=== PATIENT | male | born 1965 | race Caucasian/White ===

== ENCOUNTER 2023-02-11 14:06 | Outpatient (OUT) | payer BC, SELFPAY ==
--- NOTE | 2023-02-11 14:29 | CA_ITS ---
Patient Name: PARMJIT MINAYA MR#: [id number] : 1965 Exam Date: 02/11/2023 Ordering Doctor: DR Khanh Montemayro D.O. ECHOCARDIOGRAM REPORT PROCEDURE: CA ECHO DOPPLER COMPLETE INDICATIONS: Heart murmur, hypertension, diabetes COMPARISON: None. DESCRIPTION: COMPLETE ECHOCARDIOGRAM Real-time transthoracic echocardiography with 2D, M-mode, spectral and color flow Doppler performed. QUALITY: Technical quality was good. LEFT VENTRICLE: Normal chamber size. Proximal septal hypertrophy (sigmoid septum). LV EF: Global left ventricular systolic function is normal; visually estimated ejection fraction is 55 to 60%. No obvious wall motion abnormalities. DIASTOLIC: Normal diastolic function. ATRIAL SEPTUM: Inadequately seen. LEFT ATRIUM: Normal chamber size. RIGHT ATRIUM: Normal chamber size. RIGHT VENTRICLE: Normal chamber size. Normal right ventricular systolic function. TRICUSPID VALVE: Normal mobility and thickness. No stenosis with trivial regurgitation. Doppler studies reveal mildly (35-45) elevated right sided pressures. RVSP 35 mmHg MITRAL VALVE: Normal mobility and thickness. No evidence of mitral valve stenosis. There is no mitral annular calcification. Trivial mitral regurgitation. AORTIC VALVE: Normal trileaflet appearance. No visible sclerosis. Normal leaflet mobility. No evidence of aortic valve stenosis. No aortic regurgitation. AORTIC ROOT: Normal diameter and appearance. PULMONIC VALVE: Normal thickness and mobility. No stenosis. No regurgitation. PERICARDIUM: No evidence of pericardial effusion. IVC: Collapses with inspirations. CONCLUSION: 1. Global left ventricular systolic function is normal; visually estimated ejection fraction is 55 to 60% 2. The right ventricle is normal in size and systolic function 3. Normal diastolic function 4. No significant valvular abnormalities 5. Right ventricular systolic pressure is mildly elevated; RVSP 35 mmHg Adult Echocardiography Procedure Report Left Ventricle LVEDD (3.7 - 5.6 cm): 4.31 cm LVESD (2.2 - 4.0 cm): 3.38 cm LVIVS thickness (0.6 - 1.2 cm): 1.60 cm LVPW thickness (0.5 - 1.0 cm): 1.20 cm e': 0.11 m/s E - e': 6.76 LVOT Max Gradient: 2.64 mm[Hg] LVOT Area (cm2): 0.81 m/s Peak Velocity (LVOT): 0.81 m/s Mean Velocity (LVOT): 0.53 m/s LVOT Diameter 2.45 cm Left Atrium LA Volume Index (2D A2C): 27.03 ml/m2 Left Atrium Systolic Dimension: 4.26 cm Mitral Valve MV E to A Ratio: 0.93, 1.04 Mitral Valve A-Wave Peak Velocity: 0.76 m/s Mitral Valve E-Wave Peak Velocity: 0.75 m/s Right Ventricle Aorta AO Root Diam: 4.14 cm Ascending Ao Diam: 3.36 cm Aortic Valve AoV Area (Peak Prieto): 3.77 cm2, 3.77 cm2 AoV Area (VTI): 4.25 cm2, 4.25 cm2 Peak Velocity(Antegrade Flow): 1.01 m/s Peak Gradient(Antegrade Flow): 4.10 mm[Hg] Mean Velocity(Antegrade Flow): 0.76 m/s Mean Gradient(Antegrade Flow): 2.59 mm[Hg] Velocity Time Integral: 22.94 cm Tricuspid Valve Peak Velocity (Regurgitant Flow): 2.83 m/s, 2.45 m/s Pulmonic Valve Peak Velocity: 1.02 m/s Peak Gradient: 3.31 mm[Hg], 5.11 mm[Hg] Right Atrium Right Atrium Systolic Pressure: 45.15 ml, 45.15 ml Dictated by: Lorie Ahmadi M.D. on 02/15/2023 at 16:05 Approved by: Lorie Ahmadi M.D. on 02/15/2023 at 16:08
== END 2023-02-11 14:07 | disposition home or self-care (01) ==
LOC: CARD 14:06
PROVIDERS: PCP Internal Medicine; Visit Provider Internal Medicine
DX: R01.1 Cardiac murmur, unspecified (principal)
CPT/HCPCS: 93306

== ENCOUNTER 2023-08-31 07:04 | Outpatient (OUT) | payer BC, SELFPAY ==
--- OUTSIDE RECORDS SUMMARY | 2023-08-30 08:23 | XMS_ITS ---
Patient Summarization (C-CDA 2.1 CCD) Created on: August 30, 2023 PARMJIT MINAYA : 1965 Sex: Male Author Organization Sample organization Care Team Providers Care Force Dispatcher Name Role Phone Khanh Woodall Unavailable SIM, DR MYERS Primary Care Unavailable BALL, DR MYERS Consulting Unavailable BALL, DR MYERS Attending Unavailable BALL, DR MYERS Admitting Unavailable BALL, DR MYERS Primary Care Unavailable BALL, DR MYERS Attending Unavailable BALL, DR MYERS Admitting Unavailable BALL, DR MYERS Primary Care Unavailable NILL ., DR PARNELL Admitting Unavailable NILL ., DR PARNELL Consulting Unavailable NILL ., DR PARNELL Attending Unavailable JESUS MANUEL II, ROXIE Consulting Unavailable KOMA, ABBEY Consulting Unavailable BALL, DR MYERS Primary Care Unavailable BALL, DR MYERS Consulting Unavailable BALL, DR MYERS Attending Unavailable BALL, DR MYERS Admitting Unavailable BALL, DR MYERS Primary Care Unavailable BALL, DR MYERS Consulting Unavailable BALL, DR MYERS Attending Unavailable BALL, DR MYERS Admitting Unavailable NILL, Parmjit Boyle Attending Unavailable BALL, KHANH Referring Unavailable NILL, Parmjit Boyle Attending Unavailable BALL, KHANH Referring Unavailable NILL, Parmjit Boyle Attending Unavailable Allergies Allergy Classification Reported Allergen(s) Allergy Type Date of Onset Reaction(s) Facility (1 source) No Known Medication Allergies; Translations: [No Known Medication Allergies] Propensity to adverse reactions (disorder) [facility] Repository (3 sources) patient allergy list reviewed by nurse or physicia Propensity to adverse reactions 7 Comment:Done [facility] Other Encounters Encounter Date Encounter Type Care Provider Facility Start: 02-16-2023 End: 02-16-2023 ambulatory Khanh Woodall Other [facility] Other Start: 02-16-2023 Telephone encounter [facility] Start: 02-15-2023 End: 02-15-2023 ambulatory Khanh Woodall Other [facility] Other Start: 02-15-2023 Telephone encounter Khanh Woodall [facility] Start: 01-11-2023 End: 01-11-2023 ambulatory Khanh Woodall Other [facility] Other Start: 01-11-2023 Office outpatient vi sit 25 minutes Khanh Ball [facility] Start: 01-11-2023 Telephone encounter Khanh Woodall [facility] Start: 11-23-2022 End: 11-23-2022 ambulatory Khanh Woodall Other [facility] Other Start: 11-23-2022 Telephone encounter Khanh Woodall [facility] Start: 11-05-2022 End: 11-05-2022 ambulatory Khanh Woodall Other [facility] Other Start: 11-05-2022 Telephone encounter Khanh Woodall [facility] Start: 10-15-2022 End: 10-15-2022 ambulatory Khanh Woodall Other [facility] Other Start: 10-15-2022 Telephone encounter Khanh Woodall [facility] Start: 10-05-2022 End: 10-05-2022 ambulatory Khanh Woodall Other [facility] Other Start: 10-05-2022 Office outpatient vi sit 25 minutes Khanh Ball [facility] Start: 08-25-2022 End: 08-25-2022 ambulatory Khanh Woodall Other [facility] Other Start: 08-25-2022 Telephone encounter Khanh Woodall [facility] Start: 08-18-2022 End: 08-19-[address] KHANH WOODALL Facility: Start: 07-27-2022 End: 07-28-2022 ambulatory Parmjit REGALADO [facility] Start: 07-13-2022 ambulatory Parmjit REGALADO Facility : [facility] Start: 07-09-2022 End: 07-09-2022 ambulatory Khanh Woodall Other [facility] Other Start: 07-09-2022 Office outpatient vi sit 25 minutes Khanh Woodall [facility] Start: 07-09-2022 Telephone encounter Khanh Woodall [facility] Start: 07-08-2022 End: 07-09-[address] KHANH WOODALL Facility:[facility] Start: 07-02-2022 End: 07-02-2022 ambulatory Khanh Woodall Other [facility] Other Start: 07-02-2022 Office outpatient vi sit 15 minutes Khanh Woodall [facility] Start: 06-15-2022 Telephone encounter Khanh Woodall [facility] Start: 06-15-2022 End: 06-29-[address] KHANH WOODALL [facility] Other Start: 06-10-2022 End: 06-10-2022 ambulatory Khanh Woodall Other [facility] Other Start: 06-10-2022 Telephone encounter Khanh Woodall [facility] Start: 06-07-2022 End: 06-07-2022 ambulatory Khanh Woodall Other [facility] Other Start: 06-07-2022 Office outpatient vi sit 15 minutes Khanh Woodall [facility] Start: 06-07-2022 Telephone encounter Khanh Woodall [facility] Start: 05-17-2022 End: 05-17-2022 ambulatory Khanh Woodall Other [facility] Other Start: 05-17-2022 Telephone encounter Khanh Woodall [facility] Start: 04-16-2022 End: 04-16-2022 ambulatory Khanh Woodall Other [facility] Other Start: 04-16-2022 Telephone encounter Khanh Woodall [facility] Start: 03-28-2022 Encounter for genera l adult medical examination without abnormal findings DR KHANH WOODALL [facility] Start: 03-25-2022 Telephone encounter Khanh Woodall [facility] Start: 03-25-2022 End: 03-26-[address] KHANH WOODALL [facility] Other Start: 03-25-2022 End: 03-26-2022 Encounter for general adult medical examination without abnormal findings DR KHANH WOODALL Facility:[facility] Start: 03-24-2022 End: 03-24-2022 ambulatory Khanh Woodall Other [facility] Other Start: 03-24-2022 Encounter for genera l adult medical examination without abnormal findings Khanh Woodall [facility] Start: 03-24-2022 Patient encounter procedure Khanh Woodall [facility] Start: 03-24-2022 Periodic preventive med est patient 40-64yrs Khanh Woodall [facility] Start: 09-07-2021 End: 09-08-[address] KHANH WOODALL Facility:[facility] Start: 11-28-2019 Adult health examination Khanh Woodall Other [facility] Other Medical Equipment Procedure Code Equipment Code Equipment Original Text Equi pment Identifier Dates Pen Eugene 32G X 5 MM Immunizations Immunization Date Immunization Notes Care Provider Fa ana rosa 12-23-2020 influenza virus vaccine, split virus (incl. purified surface antigen) Khanh Woodall Other [facility] Other 11-28-2019 influenza virus vaccine, split virus (incl. purified surface antigen) Khanh Woodall Other [facility] Other 12-25-2013 tetanus and diphther ia toxoids, adsorbed, preservative free, for adult use (5 Lf of tetanus toxoid and 2 Lf of diphtheria toxoid) Khanh Woodall Other [facility] Other 01-18-2013 tetanus and diphther ia toxoids, adsorbed, preservative free, for adult use (5 Lf of tetanus toxoid and 2 Lf of diphtheria toxoid) Khanh Woodall Other [facility] Other Medications Current Medications Medication Drug Class(es) Dates Sig (Normalized) Sig (Original) acetaminophen 325 mg / HYDROcodone bitartrate 5 mg oral tablet (10 sources) Opioid Agonist Start: 06-10-2022 take 1 tablet by mouth every six hours as needed for pain HYDROcodone-Aceta minophen 5-325 MG 1 tablet Orally every 6 hrs as needed for pain, may cause sedation for 7 days May, Active amoxicillin 875 mg oral tablet (6 sources) Penicillin-class Antibacterial Start: 07-02-2022 take 1 tablet by mouth every twelve hours Amoxicillin 875 MG 1 tablet Orally Twice a day for 7 days Jun, Active Aspir-81 (20 sources) BD Insulin Syringe Ultrafine (20 sources) BD Insulin Syringe Ultrafine Active betamethasone 0.5 mg/ml / clotrimazole 10 mg/ml topical cream (6 sources) Azole Antifungal, Corticosteroid Clotrimazole-Beta methasone 1-0.05 % 1 application Externally Twice a day as needed for 30 days Active Clotrimazole-Betame thasone (17 sources) Clotrimazole-Bet a methasone Active dapagliflozin 10 mg oral tablet (9 sources) Sodium-Glucose Cotransporter 2 Inhibitor Start: 10-05-2022 take 1 tablet by mouth every twenty-four hours Farxiga 10 MG 1 tablet Orally Once a day Sep, Active Start: 10-05-2022 take 1 tablet by sheila th every twenty-four hours Farxiga 5 MG 1 tablet Orally Once a day for 30 days Sep, Active etodolac 500 mg oral tablet (10 sources) Nonsteroidal Anti-inflammatory Drug Start: 06-07-2022 take 1 tablet by mouth every twelve hours Etodolac 500 MG 1 tablet with food Orally Twice a day for 30 days May, Active FreeStyle Danilo 14 Day Sensor (20 sources) FreeStyle Danilo 14 Day Sensor Use to test home BS Transcutaneous 6x daily for 30 days Active 3 ml insulin glargine 100 unt/ml pen injector (5 sources) Insulin Analog Start: 01-11-2023 Lantus SoloStar 100 UNIT/ML 25 units Subcutaneous daily for 30 days Dec, Active insulin isophane / insulin, regular, human (20 sources) Insulin 3 ml insulin lispro 100 unt/ml pen injector (18 sources) Insulin Analog HumaLOG KwikPen 100 UNIT/ML 30 units Subcutaneous before each meal, tid for 30 days Active inject 10 [IU] by prakash bcutaneous injection three times daily at mealtime HumaLOG KwikPen 100 UNIT/ML 10 units Subcutaneous before each meal, tid for 30 days Active HumaLOG KwikPen 100 UNIT/ML 20 units Subcutaneous before lunch for 30 days Active inject 5 [IU] by sub cutaneous injection before lunch HumaLOG KwikPen 100 UNIT/ML 5 units Subcutaneous before lunch for 30 days Active lisinopril 5 mg oral tablet (12 sources) Angiotensin Converting Enzyme Inhibitor take 1 tablet by mouth once daily Lisinopril 5 MG take 1 tablet by mouth once daily for 90 Active Lisinopril Activ e losartan potassium 25 mg oral tablet (13 sources) Angiotensin 2 Receptor Davy Start: 07-09-2022 take 1 tablet by mouth every twenty-four hours Losartan Potassium 25 MG 1 tablet Orally Once a day Jun, Active metFORMIN hydrochloride 1000 mg oral tablet (9 sources) Biguanide Start: 10-05-2022 take 1 tablet by mouth twice daily metFORMIN HCl 1000 MG 1 tablet with a meal Orally Twice daily Sep, Active Start: 10-05-2022 take 1 tablet by sheila th every twenty-four hours metFORMIN HCl 500 MG 1 tablet with a meal Orally Once a day for 30 days Sep, Active Metformin & Diet Manage Prod (14 sources) Metformin & Diet Manage Prod Active Pen Eugene (15 sources) Pen Eugene Acti ve Pravastatin (20 sources) HMG-CoA Reductase Inhibitor take 1 tablet by mouth once daily in the evening Pravastatin Sodium 20 MG take 1 tablet by mouth every evening Active Pravastatin Acti ve sildenafil (20 sources) Phosphodiesterase 5 Inhibitor Sildenafil Citrate Active terbinafine 250 mg oral tablet (9 sources) Allylamine Antifungal Start: 10-06-19 take 1 tablet by mouth every twenty-four hours Terbinafine HCl 250 MG 1 tablet Orally Once a day for 14 days Sep, Active tiZANidine 4 mg oral tablet (10 sources) Central alpha-2 Adrenergic Agonist Start: 06-08-19 take 0.5-1 tablets by mouth once at bedtime tiZANidine HCl 4 MG 1/2 to 1 tablet Orally q HS for 14 days May, Active Completed/Discontinued Medications Medication Drug Class(es) Dates Sig (Normalized) Sig (Original) 3 ml insulin detemir 100 unt/ml pen injector (13 sources) Insulin Analog Start: 07-09-2022 inject 10 [IU] by subcutaneous injection once at bedtime Levemir FlexPen 100 UNIT/ML 10 units Subcutaneous q HS Jun, Not-Taking Payers Date Payer Category Payer Unknown [id number] 2.16.84 [id number] 1965 Unknown [id number] 2.16.84 [id number] 1965 Unknown [id number] 2.16.84 [id number] 1965 Unknown [id number] 2.16.84 [id number] 1965 Unknown [id number] 2.16.84 [id number] 1965 Unknown [id number] 2.16.8 [id number] 1965 Unknown [id number] 2.16.8 [id number] 1965 Unknown [id number] 2.16.8 [id number] 1958 [facility] [id number] Problems Active Problems Problem Classification Problem Date Documented Date Episodic/Chronic Acute bronchitis (1 source) Acute bronchitis due to other specified organisms Episodic Deficiency and other anemia (5 sources) Anemia, unspecified; Translations: [ANEMIA UNSPECIFIED] Onset: 07-08-2022 Episodic Deficiency and other anemia (13 sources) Iron deficiency anemia; Translations: [Iron deficiency anemia, unspecified] Episodic Deficiency and other anemia (2 sources) Iron deficiency anemia, unspecified Episodic Diabetes mellitus with complications (20 sources) Hyperglycemia due to type 2 diabetes mellitus; Translations: [Type 2 diabetes mellitus with hyperglycemia] Onset: 09-07-2021 Chronic Diabetes mellitus without complication (3 sources) Type 2 diabetes mellitus without complication; Translations: [Diabetes mellitus without mention of complication, type II or unspecified type, not stated as uncontrolled] Chronic Disorders of lipid metabolism (20 sources) Hyperlipidemia; Translations: [Hyperlipidemia, unspecified] Chronic Esophageal disorders (9 sources) Esophageal reflux finding; Translations: [Esophageal reflux] Onset: 03-16-2013 Chronic Essential hypertension (20 sources) Essential hypertension; Translations: [Essential (primary) hypertension] Chronic Heart valve disorders (2 sources) Cardiac murmur, unspecified Episodic Hyperplasia of prostate (3 sources) Benign prostatic hypertrophy without outflow obstruction; Translations: [Hypertrophy (benign) of prostate without urinary obstruction and other lower urinary tract symptoms [LUTS]] Onset: 03-08-2017 Chronic Immunizations and screening for infectious disease (3 sources) Vaccination given; Translations: [Encounter for immunization] Episodic Mycoses (20 sources) Pityriasis versicolor; Translations: [Pityriasis versicolor] Episodic Osteoarthritis (3 sources) Localized, primary osteoarthritis of the hand; Translations: [Primary osteoarthritis, left hand] Onset: 10-14-2017 Chronic Other aftercare (13 sources) Long-term current 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; Translations: [[facility] (current) 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] Episodic Other aftercare (5 sources) [facility] (current) 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; Translations: [[facility] CURRENT USE OF INSULIN] Onset: 09-09-2021 Episodic Other connective tissue disease (3 sources) Lateral epicondylitis; Translations: [Lateral epicondylitis, left elbow] Episodic Other inflammatory condition of skin (1 source) Erythema intertrigo Episodic Other injuries and conditions due to external causes (3 sources) Old healed fracture of bone ; Translations: [Personal history of (healed) traumatic fracture] Episodic Other lower respiratory disease (1 source) Other forms of dyspnea Episodic Other male genital disorders (20 sources) Impotence of organic origin; Translations: [Erectile dysfunction due to arterial insufficiency] Chronic Other non-traumatic joint disorders (1 source) Pain in right hip; Translations: [PAIN IN RIGHT HIP] Onset: 06-17-2022 Episodic Other nutritional; endocrine; and metabolic disorders (9 sources) Severe obesity; Translations: [Morbid (severe) obesity due to excess calories] Chronic Other nutritional; endocrine; and metabolic disorders (12 sources) Body mass index 30+ - obesity; Translations: [Body mass index (BMI) 36.0-36.9, adult] Onset: 04-14-2016 Chronic Other nutritional; endocrine; and metabolic disorders (3 sources) Morbid (severe) obesity due to excess calories Chronic Other nutritional; endocrine; and metabolic disorders (3 sources) Body mass index (BMI) 36.0-36.9, adult Chronic Other nutritional; endocrine; and metabolic disorders (3 sources) Simple obesity ; Translations: [Other obesity due to excess calories] Chronic Other nutritional; endocrine; and metabolic disorders (3 sources) Obesity; Translations: [Obesity, unspecified] Chronic Other screening for suspected conditions (not mental disorders or infectious disease) (20 sources) Patient encounter status; Translations: [Encounter for screening for malignant neoplasm of colon] Onset: 03-28-2022 Episodic Residual codes; unclassified (3 sources) Requires influenza virus vaccination; Translations: [Need for prophylactic vaccination and inoculation, Influenza] Episodic Residual codes; unclassified (3 sources) Family history of diabetes mellitus; Translations: [Family history of diabetes mellitus] Episodic Residual codes; unclassified (2 sources) Family history of ischemic heart disease and other diseases of the circulatory system Episodic Spondylosis; intervertebral disc disorders; other back problems (3 sources) Lumbosacral spondylosis without myelopathy; Translations: [Spondylosis without myelopathy or radiculopathy, lumbar region] Onset: 04-13-2018 Chronic Spondylosis; intervertebral disc disorders; other back problems (20 sources) Acute back pain with sciatica; Translations: [Lumbago with sciatica, right side] Onset: 06-15-2022 Episodic Substance-related disorders (3 sources) Tobacco user; Translations: [Nicotine dependence, cigarettes, in remission] Chronic Unclassified (3 sources) Exposure to acute respiratory syndrome coronavirus 2; Translations: [Contact with and (suspected) exposure to COVID-19] Viral infection (3 sources) Viral disease; Translations: [Viral infection, unspecified] Episodic Viral infection (3 sources) Disease caused by 2019-nCoV; Translations: [COVID-19] Past or Other Problems Problem Classification Problem Date Documented Da te Episodic/Chronic Esophageal disorders (20 sources) Esophageal disorders; Translations: [Gastro-esophageal reflux disease with esophagitis, without bleeding] Influenza (3 sources) Upper respiratory tract infection due to Influenza; Translations: [Influenza due to unidentified influenza virus with other respiratory manifestations] Onset: 03-18-2016 Episodic Other connective tissue disease (3 sources) Pain in limb; Translations: [Pain in left finger(s)] Onset: 10-14-2017 Episodic Other nutritional; endocrine; and metabolic disorders (3 sources) Overweight; Translations: [Overweight] Onset: 04-14-2016 Episodic Other nutritional; endocrine; and metabolic disorders (3 sources) Body mass index 25-29 - overweight; Translations: [Body mass index 29.0-29.9, adult] Onset: 04-14-2016 Episodic Other upper respiratory infections (3 sources) Acute sinusitis; Translations: [Acute sinusitis, unspecified] Onset: 03-16-2013 Episodic Screening and history of mental health and substance abuse codes (3 sources) History of tobacco use; Translations: [Personal history of tobacco use, presenting hazards to health] Onset: 06-27-2017 Episodic Unclassified (3 sources) Other closed skull fracture without mention of intracranial injury, brief (less than one hour) loss of consciousness; Translations: [Other closed skull fracture without mention of intracranial injury, brief (less than one hour) loss of consciousness] Procedures Date Procedure Procedure Detail Performing Clinician Start: 03-25-[address] GODOY IN [facility] Comment on above: Performed By: #### P [facility] #### [facility] [address] [place] [address] Dr. Russ Hsu Start: 11-01-2018 Screening for malign ant neoplasm of colon Khanh Woodall Other Start: 02-21-2015 General examination of patient Khanh Woodall Other Results Test Name Value Interpretation Reference Range Facility Outside Colonoscopyon 2022 Outside Colonoscopy [id number] .00CD:127 Normal [facility] Reminderson 08-19-2022 Reminders - From: Jess Perez LPN To: N - Clinical; Sent: 08/19/2022 12:08:18 EDT Show up: 07/18/2032 07:00:00 EDT Subject: colonoscopy recall Due Date/Time: 08/18/2032 07:00:00 EDT Reminder/Recall Patient due for screening colonoscopy 08/18/2032. [facility] Consent for Procedure/Surger yon 07-29-2022 Consent for Procedure/Surgery [id number] .[id number]:127 [facility] Facesheeton 07-29-2022 Facesheet [id number] .00CD:127 [facility] Pre-Certification Formon Pre-Certification Form [id number]# 1.00CD:127 [facility] Ambulatory Visit Summaryon 0 07-27-2022 Ambulatory Visit Summary SVEN MINAYA :1965 Visit Date:07/27/2022 Ambulatory Visit Instructions Your Diagnosis Iron deficiency anemia Anemia due to gastrointestinal blood loss Your Care Team Attending Physician - Parmjit REGALADO MD Primary Care Physician - KHANH WOODALL DO Referring Physician - KHANH WOODALL DO This Is Your Medications List Contact prescribing physician if questions or concerns aspirin (aspirin 81 mg Oral EC Tab) insulin isophane-insulin regular (HumuLIN 70/30 KwikPen) insulin lispro (Humalog KwikPen) losartan (losartan 25 mg Tab) metformin (metformin 1000 mg Tab) pravastatin (pravastatin 20 mg Tab) sildenafil Procedures Performed Extraction of wisdom tooth. Discharge Vitals Heart Rate (Peripheral) 72 Respiratory Rate 16 Blood Pressure 136/94 Height 177.8 cm Height 70 in Weight 110.4 kg Weight 242.88 lb BMI 34.92 Medications What How Much When Instructions Unchanged aspirin (aspirin 81 mg Oral EC Tab) 1 Tablets By Mouth Every day Contact prescribing physician if questions or concerns Unchanged insulin isophane-insulin regular (HumuLIN 70/ 30 KwikPen) as directed Contact prescribing physician if questions or concerns Unchanged insulin lispro (Humalog KwikPen) as directed Contact prescribing physician if questions or concerns Unchanged losartan (losartan 25 mg Tab) Oral Contact prescribing physician if questions or concerns Unchanged metformin (metformin 1000 mg Tab) 1 Tablets By Mouth 2 times a day Contact prescribing physician if questions or concerns Unchanged pravastatin (pravastatin 20 mg Tab) 1 Tablets By Mouth Every day Contact prescribing physician if questions or concerns Unchanged sildenafil Contact prescribing physician if questions or concerns Allergies No Known Allergies No Known Medication Allergies Problems Ongoing - Any problem that you are currently receiving treatment for. Anemia due to gastrointestinal blood loss BMI 34.0-34.9,adult Diabetes Erectile dysfunction Essential hypertension GERD (gastroesophageal reflux disease) Hyperlipidemia Iron deficiency anemia Normal [facility] Physician Referralon 023 Physician Referral [id number]. 00CD:127 Normal [facility] CBC AUTO DIFFon 07-08-2022 BASO # 0.1 103/ul Normal 0.0-0.1 [facility] Comment on above: Performed By: #### C BC #### [facility] [address] [place] [address] Dr. Russ Hsu Basophils/100 WBC (Bld) 0.9 % Normal 0.2-2.0 [facility] Comment on above: Performed By: #### C BC #### [facility] [address] [place] [address] Dr. Russ Hsu EO # 0.4 103/ul Normal 0.0-0.7 [facility] Comment on above: Performed By: #### C BC #### [facility] [address] [place] [address] Dr. Russ Hsu Eosinophils/100 WBC (Bld) 4.1 % Normal 0.9-7.0 [facility] Comment on above: Performed By: #### C BC #### [facility] [address] [place] [address] Dr. Russ Hsu Erythrocyte distribution width (RBC) [Ratio] 13.6 % Normal 11.0-15.0 [facility] Comment on above: Performed By: #### C BC #### [facility] [address] [place] [address] Dr. Russ Hsu Hematocrit (Bld) [Volume fraction] 40.0 % Critically low 42.0-54.0 [facility] Comment on above: Performed By: #### C BC #### [facility] [address] [place] [address] Dr. Russ Hsu Hemoglobin (Bld) [Mass/Vol] 13.2 g/dL Critically low 14.0-18.0 [facility] Comment on above: Performed By: #### C BC #### [facility] [address] [place] [address] Dr. Russ Hsu IG # 0.08 10e3/ul Critically high 0.00-0.03 [facility] Comment on above: Performed By: #### C BC #### [facility] [address] [address] [address] Russ Hsu IG % 0.8 % Critically high 0.0-0.5 [facility] Comment on above: Performed By: #### C BC #### [facility] [address] [place] [address] Dr. Russ Hsu LYMPH # 2.0 103/ul Normal 1.2-3.8 [facility] Comment on above: Performed By: #### C BC #### [facility] [address] [place] [address] Dr. Russ Hsu Lymphocytes/100 WBC (Bld) 20.7 % Normal 20.5-60.0 [facility] Comment on above: Performed By: #### C BC #### [facility] [address] [place] [address] Dr. Russ Hsu MANUAL DIFF REQ NO Normal [facility] Comment on above: Performed By: #### C BC #### [facility] [address] [place] [address] Dr. Russ Hsu MCH (RBC) [Entitic mass] 28.6 pg Normal 25.9-34.0 [facility] Comment on above: Performed By: #### C BC #### [facility] [address] [place] [address] Dr. Russ Hsu MCHC (RBC) [Mass/Vol] 33.0 g/dL Normal 29.9-35.2 [facility] Comment on above: Performed By: #### C BC #### [facility] [address] [place] [address] Dr. Russ Hsu MCV (RBC) [Entitic vol] 86.8 fL Normal 80.0-94.0 [facility] Comment on above: Performed By: #### C BC #### [facility] [address] [place] [address] Dr. Russ Hsu MONO # 0.9 103/ul Critically high 0.3-0.8 [facility] Comment on above: Performed By: #### C BC #### [facility] [address] [place] [address] Dr. Russ Hsu Monocytes/100 WBC (Bld) 9.2 % Normal 1.7-12.0 [facility] Comment on above: Performed By: #### C BC #### [facility] [address] [place] [address] Dr. Russ Hsu NEUT # 6.1 103/ul Normal 1.4-6.5 [facility] Comment on above: Performed By: #### C BC #### [facility] [address] [place] [address] Dr. Russ Hsu Neutrophils/100 WBC (Bld) 64.3 % Normal 43.0-75.0 [facility] Comment on above: Performed By: #### C BC #### [facility] [address] [place] [address] Dr. Russ Hsu Platelet mean volume (Bld) [Entitic vol] 9.2 fL Critically low 9.5-13.5 [facility] Comment on above: Performed By: #### C BC #### [facility] [address] [place] [address] Dr. Russ Hsu PLT 366 103/ul Normal 150-450 [facility] Comment on above: Performed By: #### C BC #### [facility] [address] [place], [place] [id number] Dr. Russ Hsu RBC 4.61 106/ul Critically low 4.70-6.10 [facility] Comment on above: Performed By: #### C BC #### [facility] [address] [place] [address] Dr. Russ Hsu WBC 9.5 103/ul Normal 4.0-11.0 [facility] Comment on above: Performed By: #### C BC #### [facility] [address] [address] [address] Russ Hsu FERRITINon 07-08-2022 Ferritin [Mass/Vol] 53.0 ng/mL Normal 26.0-388.0 [facility] Comment on above: Performed By: #### F ERR, B12FOL, FETIBC #### [facility] [address] [address] [address] Russ Hsu GLYCOHEMOGLOBIN A1Con 2022 ADA RECOMMENDATION SEE BELOW Normal [facility] Comment on above: Result Comment: ADA RECOMMENDED LIMIT 4.0 - 6.0 ADA THERAPEUTIC TARGET < 7.0 ACTION SUGGESTED > 7.0 Performed By: #### A 1C #### [facility] [address] [address] [address] Russ Hsu Glucose [Mass/Vol] 203 mg/dL Normal [facility] Comment on above: Performed By: #### A 1C #### [facility] [address] [address] [address] Russ Hsu HbA1c (Bld) [Mass fraction] 8.7 % Critically high 4.5-6.2 [facility] Comment on above: Performed By: #### A 1C #### [facility] [address] [address] [address] Russ Hsu IRON AND TIBCon 07-08-2022 % SATURATION 16.9 % Normal [facility] Comment on above: Performed By: #### F ERR, B12FOL, FETIBC ####[facility] [id number] [address]Dr. Russ Hsu Iron [Mass/Vol] 57.0 ug/dL Critically low 65.0-175.0 [facility] Comment on above: Performed By: #### F ERR, B12FOL, FETIBC ####[facility] [id number] [id number]. Russ Hsu TIBC DIRECT 337.0 ug/dL Normal 250.0-450.0 [facility] Comment on above: Performed By: #### F ERR, B12FOL, FETIBC ####[facility] [id number] [address]Dr. Russ Hsu VIT B12 AND FOLATEon 023 Cobalamin (Vitamin B12) [Mass/Vol] 353.0 pg/mL Normal 193.0-986.0 [facility] Comment on above: Performed By: #### F ERR, B12FOL, FETIBC ####[facility] [address] [address]Dr. Russ Hsu FOLATE 15.80 ng/mL Normal 8.60-58.90 [facility] Comment on above: Performed By: #### F ERR, B12FOL, FETIBC ####[facility] [address] [address]Dr. Russ Hsu CBC AUTO DIFFon 03-25-2022 BASO # 0.1 103/ul Normal 0.0-0.1 [facility] Comment on above: Performed By: #### C BC #### [facility] [address] [place] [address] Dr. Russ Hsu Basophils/100 WBC (Bld) 0.8 % Normal 0.2-2.0 [facility] Comment on above: Performed By: #### C BC #### [facility] [address] [place] [address] Dr. Russ Hsu EO # 0.5 103/ul Normal 0.0-0.7 [facility] Comment on above: Performed By: #### C BC #### [facility] [address] [place] [address] Dr. Russ Hsu Eosinophils/100 WBC (Bld) 5.9 % Normal 0.9-7.0 [facility] Comment on above: Performed By: #### C BC #### [facility] [address] [place] [address] Dr. Russ Hsu Erythrocyte distribution width (RBC) [Ratio] 13.2 % Normal 11.0-15.0 [facility] Comment on above: Performed By: #### C BC #### [facility] [address] [place] [address] Dr. Russ Hsu Hematocrit (Bld) [Volume fraction] 41.1 % Critically low 42.0-54.0 [facility] Comment on above: Performed By: #### C BC #### [facility] [address] [place] [address] Dr. Russ Hsu Hemoglobin (Bld) [Mass/Vol] 13.8 g/dL Critically low 14.0-18.0 [facility] Comment on above: Performed By: #### C BC #### [facility] [address] [place] [address] Dr. Russ Hsu IG # 0.08 10e3/ul Critically high 0.00-0.03 [facility] Comment on above: Performed By: #### C BC #### [facility] [address] [place] [address] Dr. Russ Hsu IG % 0.9 % Critically high 0.0-0.5 [facility] Comment on above: Performed By: #### C BC #### [facility] [address] [place] [address] Dr. Russ Hsu LYMPH # 2.3 103/ul Normal 1.2-3.8 [facility] Comment on above: Performed By: #### C BC #### [facility] [address] [place] [address] Dr. Russ Hsu Lymphocytes/100 WBC (Bld) 24.7 % Normal 20.5-60.0 [facility] Comment on above: Performed By: #### C BC #### [facility] [address] [place] [address] Dr. Russ Hsu MANUAL DIFF REQ NO Normal [facility] Comment on above: Performed By: #### C BC #### [facility] [address] [place] [address] Dr. Russ Hsu MCH (RBC) [Entitic mass] 28.5 pg Normal 25.9-34.0 [facility] Comment on above: Performed By: #### C BC #### [facility] [address] [place] [address] Dr. Russ Hsu MCHC (RBC) [Mass/Vol] 33.6 g/dL Normal 29.9-35.2 [facility] Comment on above: Performed By: #### C BC #### [facility] [address] [place] [address] Dr. Russ Hsu MCV (RBC) [Entitic vol] 84.7 fL Normal 80.0-94.0 [facility] Comment on above: Performed By: #### C BC #### [facility] [address] [place] [address] Dr. Russ Hsu MONO # 0.9 103/ul Critically high 0.3-0.8 [facility] Comment on above: Performed By: #### C BC #### [facility] [address] [place] [address] Dr. Russ Hsu Monocytes/100 WBC (Bld) 9.3 % Normal 1.7-12.0 [facility] Comment on above: Performed By: #### C BC #### [facility] [address] [place] [address] Dr. Russ Hsu NEUT # 5.4 103/ul Normal 1.4-6.5 [facility] Comment on above: Performed By: #### C BC #### [facility] [address] [place] [address] Dr. Russ Hsu Neutrophils/100 WBC (Bld) 58.4 % Normal 43.0-75.0 [facility] Comment on above: Performed By: #### C BC #### [facility] [address] [place] [address] Dr. Russ Hsu Platelet mean volume (Bld) [Entitic vol] 9.2 fL Critically low 9.5-13.5 [facility] Comment on above: Performed By: #### C BC #### [facility] [address] [place] [address] Dr. Russ Hsu PLT 327 103/ul Normal 150-450 [facility] Comment on above: Performed By: #### C BC #### [facility] [address] [place] [address] Dr. Russ Hsu RBC 4.85 106/ul Normal 4.70-6.10 [facility] Comment on above: Performed By: #### C BC #### [facility] [address] [address] [address] Russ Hsu WBC 9.2 103/ul Normal 4.0-11.0 [facility] Comment on above: Performed By: #### C BC #### [facility] [address] [address] [address] Russ Hsu GLYCOHEMOGLOBIN A1Con 2022 ADA RECOMMENDATION SEE BELOW Normal [facility] Comment on above: Result Comment: ADA RECOMMENDED LIMIT 4.0 - 6.0 ADA THERAPEUTIC TARGET < 7.0 ACTION SUGGESTED > 7.0 Performed By: #### A 1C ####[facility] [id number] [id number]. Russ Hsu Glucose [Mass/Vol] 232 mg/dL Normal [facility] Comment on above: Performed By: #### A 1C ####[facility] [address] [id number]. Russ Hsu HbA1c (Bld) [Mass fraction] 9.7 % Critically high 4.5-6.2 [facility] Comment on above: Performed By: #### A 1C ####[facility] [address] [id number]. Russ Hsu LIPID PROFILEon 03-25-2022 CHOL-HDL RATIO NORM SEE BELOW Normal [facility] Comment on above: Result Comment: 3.3 - 4.4 LOW RISK 4.4 - 7.1 AVERAGE RISK 7.1 - 11.0 MODERATE RISK >11.0 HIGH RISK Performed By: #### C MP, LIPID #### [facility] [address] [address] [address] Russ Hsu Cholesterol [Mass/Vol] 145 mg/dL Normal <=200 [facility] Comment on above: Performed By: #### C MP, LIPID #### [facility] [address] [address] [address] Russ Hsu Cholesterol in HDL [Mass/Vol] 47 mg/dL Normal 40-60 [facility] Comment on above: Performed By: #### C MP, LIPID #### [facility] [address] [address] [address] Russ Hsu Cholesterol in LDL [Mass/Vol] 78.2 mg/dL Normal [facility] Comment on above: Performed By: #### C MP, LIPID #### [facility] [address] [address] [address] Russ Hsu Cholesterol.total/Cho lesterol in HDL [Mass ratio] 3.1 {ratio} Normal [facility] Comment on above: Performed By: #### C MP, LIPID #### [facility] [address] [address] [address] Russ Hsu HDL NORMAL > or = 60 mg/dl - LO W CARDIOVASCULAR RISK <40 mg/dl - HIGH CARDIOVASCULAR RISK Normal [facility] Comment on above: Performed By: #### C MP, LIPID #### [facility] [address] [place] [address] Dr. Russ Hsu LDL CALC NORMAL SEE BELOW Normal [facility] Comment on above: Result Comment: <100 mg/dl OPTIMAL 100 - 129 mg/dl NEAR OR ABOVE OPTIMAL 130 - 159 mg/dl BORDERLINE HIGH 160 - 189 mg/dl HIGH >190 mg/dl VERY HIGH Performed By: #### C MP, LIPID #### [facility] [address] [place] [address] Dr. Russ Hsu Triglyceride [Mass/Vol] 99 mg/dL Normal <=150 [facility] Comment on above: Performed By: #### C MP, LIPID #### [facility] [address] [place] [address] Dr. Russ Hsu VLDL CALC 19.8 mg/dL Normal [facility] Comment on above: Performed By: #### C MP, LIPID #### [facility] [address] [place] [address] Dr. Russ Hsu MICROALBUMIN, RAND URon 01-0 mALB 1.5 mg/L Normal <=30.0 [facility] Comment on above: Performed By: #### M ALBR #### [facility] [address] [place] [address] Dr. Russ Hsu PROF 14(COMP METB)on 023 Albumin [Mass/Vol] 3.5 g/dL Normal 3.4-5.0 [facility] Comment on above: Performed By: #### C MP, LIPID #### [facility] [address] [place] [address] Dr. Russ Hsu Albumin/Globulin [Mass ratio] 0.9 {ratio} Normal [facility] Comment on above: Performed By: #### C MP, LIPID #### [facility] [address] [place] [address] Dr. Russ Hsu ALP [Catalytic activity/Vol] 113 U/L Normal 46-116 [facility] Comment on above: Performed By: #### C MP, LIPID #### [facility] [address] [place] [address] Dr. Russ Hsu ALT [Catalytic activity/Vol] 23 U/L Normal 16-63 [facility] Comment on above: Performed By: #### C MP, LIPID #### [facility] [address] [place] [address] Dr. Russ Hsu Anion gap [Moles/Vol] 11.4 mmol/L Normal [facility] Comment on above: Performed By: #### C MP, LIPID #### [facility] [address] [place] [address] Dr. Russ Hsu AST [Catalytic activity/Vol] 17 U/L Normal 15-37 [facility] Comment on above: Performed By: #### C MP, LIPID #### [facility] [address] [place] [address] Dr. Russ Hsu Bilirubin [Mass/Vol] 0.3 mg/dL Normal 0.2-1.0 [facility] Comment on above: Performed By: #### C MP, LIPID #### [facility] [address] [place] [address] Dr. Russ Hsu Calcium [Mass/Vol] 9.3 mg/dL Normal 8.5-10.1 [facility] Comment on above: Performed By: #### C MP, LIPID #### [facility] [address] [address] [address] Russ Hsu Chloride [Moles/Vol] 100 mmol/L Normal 98-107 [facility] Comment on above: Performed By: #### C MP, LIPID #### [facility] [address] [address] [address] Russ Hsu CO2 [Moles/Vol] 27.5 mmol/L Normal 21.0-32.0 [facility] Comment on above: Performed By: #### C MP, LIPID #### [facility] [address] [address] [address] Russ Hsu Creatinine [Mass/Vol] 1.00 mg/dL Normal 0.70-1.30 [facility] Comment on above: Performed By: #### C MP, LIPID #### [facility] [address] [place] [address] Dr. Russ Hsu EGFR-AF TUVALUAN >60 Normal >=60 [facility] Comment on above: Performed By: #### C MP, LIPID #### [facility] [address] [place] [address] Dr. Russ Hsu EGFR-NON AF TUVALUAN >60 Normal >=60 [facility] Comment on above: Performed By: #### C MP, LIPID #### [facility] [address] [place] [address] Dr. Russ Hsu Globulin (S) [Mass/Vol] 3.8 g/dL Normal [facility] Comment on above: Performed By: #### C MP, LIPID #### [facility] [address] [place] [address] Dr. Russ Hsu Glucose [Mass/Vol] 181 mg/dL Critically high 74-106 [facility] Comment on above: Performed By: #### C MP, LIPID #### [facility] [address] [place] [address] Dr. Russ Hsu Potassium [Moles/Vol] 3.9 mmol/L Normal 3.5-5.1 [facility] Comment on above: Performed By: #### C MP, LIPID #### [facility] [address] [address] [address] Russ Hsu Protein [Mass/Vol] 7.3 g/dL Normal 6.4-8.2 [facility] Comment on above: Performed By: #### C MP, LIPID #### [facility] [address] [address] [address] Russ Hsu Sodium [Moles/Vol] 135 mmol/L Critically low 136-145 [facility] Comment on above: Performed By: #### C MP, LIPID #### [facility] [address] [address] [address] Russ Hsu Urea nitrogen [Mass/Vol] 13.0 mg/dL Normal 7.0-18.0 [facility] Comment on above: Performed By: #### C MP, LIPID #### [facility] [address] [place] [address] Dr. Russ Hsu Urea nitrogen/Creatinine [Mass ratio] 13.0 mg/mg Normal [facility] Comment on above: Performed By: #### C MP, LIPID #### [facility] [address] [address] [address] Russ Hsu GLYCOHEMOGLOBIN A1Con 2021 ADA RECOMMENDATION SEE BELOW Normal [facility] Comment on above: Result Comment: ADA RECOMMENDED LIMIT 4.0 - 6.0 ADA THERAPEUTIC TARGET < 7.0 ACTION SUGGESTED > 7.0 Performed By: #### A 1C #### [facility] [address] [place] [address] Dr. Russ Hsu Glucose [Mass/Vol] 214 mg/dL Normal [facility] Comment on above: Performed By: #### A 1C #### [facility] [address] [place] [address] Dr. Russ Hsu HbA1c (Bld) [Mass fraction] 9.1 % Critically high 4.5-6.2 [facility] Comment on above: Performed By: #### A 1C #### [facility] [address] [place] [address] Dr. Russ Hsu Social History Date Type Detail Facility Sex Assigned At [facility] Other Vital Signs Date Time Vital Sign Value Performing Clinician Facility 01-11-2023 15:30-0400 Body height 177.8 cm Khanh Ball Other [facility] 01-11-2023 15:30-0400 Body mass index (BMI) [Ratio] 35.95 kg/m2 Khan[facility] Ball Other [facility] 01-11-2023 15:30-0400 Body weight 113.67 kg Khanh Ball Other [facility] 01-11-2023 15:30-0400 Diastolic blood pressure 91 mm[Hg] Khanh Ball Other [facility] 01-11-2023 15:30-0400 Respiratory rate 12 /min Khanh Ball Other [facility] 01-11-2023 15:30-0400 Systolic blood pressure 146 mm[Hg] Khanh Ball Other [facility] 10-05-2022 15:30-0400 Body height 177.8 cm Khanh Ball Other [facility] 10-05-2022 15:30-0400 Body mass index (BMI) [Ratio] 36.1 kg/m2 Khanh Ball Other [facility] 10-05-2022 15:30-0400 Body weight 114.13 kg Khanh Ball Other [facility] 10-05-2022 15:30-0400 Diastolic blood pressure 96 mm[Hg] Khanh Ball Other [facility] 10-05-2022 15:30-0400 Respiratory rate 16 /min Khanh Ball Other [facility] 10-05-2022 15:30-0400 Systolic blood pressure 172 mm[Hg] Khanh Ball Other [facility] 07-09-2022 09:30-0400 Body height 177.8 cm Khanh Ball Other [facility] 07-09-2022 09:30-0400 Body mass index (BMI) [Ratio] 35.09 kg/m2 Khanh Ball Other [facility] 07-09-2022 09:30-0400 Body weight 110.95 kg Khanh Ball Other [facility] 07-09-2022 09:30-0400 Diastolic blood pressure 90 mm[Hg] Khanh Ball Other [facility] 07-09-2022 09:30-0400 Respiratory rate 20 /min Khanh Ball Other [facility] 07-09-2022 09:30-0400 Systolic blood pressure 152 mm[Hg] Khanh Ball Other [facility] 06-07-2022 16:45-0400 Body height 177.8 cm Khanh Ball Other [facility] 06-07-2022 16:45-0400 Body mass index (BMI) [Ratio] 34.43 kg/m2 Khanh Ball Other [facility] Other 06-07-2022 16:45-0400 Body weight 108.86 kg Khanh Ball Other [facility] 06-07-2022 16:45-0400 Diastolic blood pressure 76 mm[Hg] Khanh Ball Other [facility] Other 06-07-2022 16:45-0400 Respiratory rate 16 /min Khanh Ball Other [facility] Other 06-07-2022 16:45-0400 Systolic blood pressure 122 mm[Hg] Khanh Ball Other [facility] Other 03-24-2022 09:30-0500 Body height 177.8 cm Khanh Ball Other [facility] Other 03-24-2022 09:30-0500 Body mass index (BMI) [Ratio] 33.86 kg/m2 Khanh Ball Other [facility] Other 03-24-2022 09:30-0500 Body weight 107.05 kg Khanh Ball Other [facility] Other 03-24-2022 09:30-0500 Diastolic blood pressure 78 mm[Hg] Khanh Ball Other [facility] Other 03-24-2022 09:30-0500 Respiratory rate 16 /min Khanh Ball Other [facility] Other 03-24-2022 09:30-0500 Systolic blood pressure 122 mm[Hg] Khanh Ball Other [facility] Other Clinical Notes 03-24-2022 to 02-15-2023 Note Date & Type Note Facility 02-15-2023 Evaluation note Encounter Date Diagnosis Assessment Notes Jan, Primary hypertension (ICD-10 - I10) Jan, TATE (dyspnea on exertion) (ICD-10 - R06.09) [facility] Other [id number] Evaluation note* Encounter Date Diagnosis Assessment Notes Treatment Notes Treatment Clinical Notes Dec, Type 2 diabetes mellitus with diabetic polyneuropathy (ICD-10 - E11.42) Inspect feet daily for cuts and calluses.Recommend diabetic shoes and inserts to prevent callus formation.Fall precautions. Dec, Type 2 diabetes mellitus with hyperglycemia (ICD-10 - E11.65) This patient is following a comprehensive diabetic treatment plan. They are checking their feet daily for calluses and nonhealing ulcers. They are being seen for yearly dilated eye examinations. Goals: SBP less than 130, LDL less than 100, FBS less than 140, A1C less than 7%. They are checking their BS daily, will which are reviewed at the office visit. Continue regular routine monitoring of A1C,] Microalbumin, Dilated eye exam and Foot exam Initiated basal insulin Continue meal time ISS Continue Metformin and Farxiga Dec, Primary hypertension (ICD-10 - I10) This patient is instructed to consume a healthy, low-fat, low-salt diet. They are also encouraged to continue exercise to achieve/maintain a normal BMI. Dec, Mixed hyperlipidemia (ICD-10 - E78.2) Instructed on diet and exercise with continued statin therapy.Discussed the beneficial effects of lowering cholesterol in reducing the risk for cerebrovascular and cardiovascular disease. Dec, Morbid (severe) obesity due to excess calories (ICD-10 - E66.01) This patient has been instructed on a low-fat, high-fiber diet. They are instructed to reduce calories, portion sizes and snacks. It is recommended that they exercise for 30 minutes, 3-5 times weekly. 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 SBP< 135 LDL<100 A1C<7% Diet, exercise and weight loss Dec, Heart murmur (ICD-10 - R01.1) Dec, Other This patient is following a comprehensive diabetic treatment plan. They are checking their feet daily for calluses and nonhealing ulcers. They are being seen for yearly dilated eye examinations. Goals: SBP less than 130, LDL less than 100, FBS less than 140, A1C less than 7%. They are checking their BS daily, will which are reviewed at the office visit. Continue regular routine monitoring of A1C,] Microalbumin, Dilated eye exam and Foot exam [facility] Other 09-05-2023 Evaluation note* Encounter Date Diagnosis Assessment Notes Treatment Notes Treatment Clinical Notes Nov, Controlled type 2 diabetes mellitus with hyperglycemia (ICD-10 - E11.65) [facility] Other 08-18-2023 Evaluation note* Encounter Date Diagnosis Assessment Notes Treatment Notes Treatment Clinical Notes Oct, Controlled type 2 diabetes mellitus with hyperglycemia (ICD-10 - E11.65) [facility] Other 07-18-2023 Evaluation note* Encounter Date Diagnosis Assessment Notes Treatment Notes Treatment Clinical Notes Sep, Type 2 diabetes mellitus with diabetic polyneuropathy (ICD-10 - E11.42) Inspect feet daily for cuts and calluses.Recommend diabetic shoes and inserts to prevent callus formation.Fall precautions. Sep, Controlled type 2 diabetes mellitus with hyperglycemia (ICD-10 - E11.65) This patient is following a comprehensive diabetic treatment plan. They are checking their feet daily for calluses and nonhealing ulcers. They are being seen for yearly dilated eye examinations. Goals: SBP less than 130, LDL less than 100, FBS less than 140, AC and A1C less than 7%. They are checking their BS daily, will which are reviewed at the office visit. Continue regular routine monitoring of A1C,] Microalbumin, Dilated eye exam and Foot exam Sep, Primary hypertension (ICD-10 - I10) This patient is instructed to consume a healthy, low-fat, low-salt diet. They are also encouraged to continue exercise to achieve/maintain a normal BMI. Sep, Morbid (severe) obesity due to excess calories (ICD-10 - E66.01) This patient has been instructed on a low-fat, high-fiber diet. They are instructed to reduce calories, portion sizes and snacks. It is recommended that they exercise for 30 minutes, 3-5 times weekly. Sep, Body mass index [BMI] 36.0-36.9, adult (ICD-10 - Z68.36) Sep, Mixed hyperlipidemia (ICD-10 - E78.2) Instructed on diet and exercise with continued statin therapy.Discussed the beneficial effects of lowering cholesterol in reducing the risk for cerebrovascular and cardiovascular disease. Sep, Intertriginous dermatitis associated with moisture (ICD-10 - L30.4) Keep area clean and dry. Stop Lotrisone Trial of Lamisil Sep, Tinea versicolor (ICD-10 - B36.0) Selson lotion to shoulders and chest. [facility] Other 05-31-2023 NoteOPERATIVE NOTE OPERATION DATE: 08/18/2022 PREOPERATIVE DIAGNOSIS: Iron deficiency anemia. POSTOPERATIVE DIAGNOSIS: Small sliding type hiatal hernia, normal colonoscopy. PROCEDURE: EGD and colonoscopy to cecum. SURGEON: Parmjit Regalado M.D. ANESTHESIA: Monitored anesthesia care. ESTIMATED BLOOD LOSS: Zero. INDICATIONS AND CONSENT: Patient is a 56-year-old male found to have mild anemia. Indications, risks, benefits, alternatives of proceeding with EGD and colonoscopy were explained extensively to the patient, including the risks of bleeding, aspiration, esophageal/gastric/duodenal/colonic perforation or anesthetic complications. All of his questions were answered. Informed consent was obtained. PROCEDURE: Patient brought to the operating room, placed in the left lateral decubitus position. Monitored anesthesia care was provided. Bite block was placed in the patient's mouth. Scope was entered into the oropharynx. Under direct visualization, it was advanced into the esophagus, past the cricopharyngeus, down to the stomach. The stomach was insufflated with air. The pylorus was traversed down to the descending portion of the duodenum. There was no evidence of duodenitis or ulceration. There was no scarring within the pyloric channel. Scope was pulled back into the stomach and retroflexed. There was noted to be a small, sliding type hiatal hernia. No other gastric mucosal abnormalities. The GE junction was noted at approximately 41 cm. There was no distal esophagitis or Mendenhall's changes. Remainder of the esophagus was unremarkable. The scope was then withdrawn. Patient was then positioned for colonoscopy. Rectal exam was performed, which showed no masses or blood. The scope was then inserted into the anal canal. Under direct visualization, it was advanced. It was advanced to the cecum where cecal markings were clearly identified. Upon withdrawal of the scope, mucosal surfaces were carefully examined. There were no mass lesions or polyps. No inflammatory changes or ulcerations. No significant diverticulosis. The scope was retroflexed in the anal canal. There was no significant hemorrhoidal disease. The scope was then withdrawn. The patient tolerated procedure well, was sent to recovery room in good condition. Follow up colonoscopy for screening should be in 10 years. CC: Khanh Woodall D.O.[facility] [id number] NoteChief Complaint consultation for iron deficiency anemia HPI Staff 56 year old male presents on consultation from Dr. Woodall for iron deficiency anemia. Labs completed 07/08 with HGB 13.2, HCT 40, iron 57 and normal Ferritin, TIBC, B12 and folate. Denies dizziness, lightheadedness, fatigue or SOB. Denies abdominal or rectal pain. No rectal bleeding or change in bowelhabits. Denies nausea or vomiting. No unexplained weight loss. Never had colonoscopy in the past. No known family history of colon cancer. History of Present Illness 56 yo male with h/o htn, DMII, GERD, hyperlipidemia, referred for iron deficiency anemia; denies change in bms or blood in stools, no melena or hematochezia; no abd complaints; no previous EGD/colonoscopy, no abd operations; on baby asa daily, takes ibuprofen prn, no SBE prophylaxis; no fmhx of GI m alignancy or IBD; no tobacco use. Review of Systems PHQ Score Initial Depression Screen Score: 0 ROS - Provider Constitutional: no fever, no sweats, no weight loss. Eyes: no glasses, no blurred vision, no visual loss. ENMT: no dentures, no hoarseness, no swallowing difficulties, no hearing loss, no ear infection(s),no nose bleeds. Cardiovascular: normal blood pressure, no chest pain, regular heartbeat, no heart murmur. Respiratory: no shortness of breath, no cough, no asthma, no wheezing. Gastrointestinal: no nausea, no vomiting, no diarrhea, no constipation, no blood in stool, no change in bowel habits, no abdominal pain, no hepatitis. Genitourinary: no kidney stones, no urine infection, no dysuria. Musculoskeletal: no pain, no weakness. Skin: no changing moles, no rash, no skin lumps. Neurologic: no seizures, no epilepsy, no headache. Psychiatric: no emotional or psychiatric problem. Heme/Lymph: no bleeding problems, no anemia, no blood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
--- OUTSIDE RECORDS SUMMARY | 2023-08-31 07:07 | XMS_ITS ---
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 Name Role Phone Khanh Woodall Unavailable SIM, [...] Medication Allergies] Propensity to adverse reactions (disorder) [facility] Repository (3 sources) patient allergy list reviewed by nurse or physicia Propensity to adverse reactions 7 Comment:Done [employer] Other Encounters Encounter Date Encounter Type Care Provider Facility Start: 02-16-2023 End: 02-16-2023 ambulatory Khanh Woodall Other [employer] Other Start: 02-16-2023 Telephone encounter [facility] Start: 02-15-2023 End: 02-15-2023 ambulatory Khanh Woodall Other [employer] Other Start: 02-15-2023 Telephone encounter Khanh Woodall [facility] Start: 01-11-2023 End: 01-11-2023 ambulatory Khanh Woodall Other [employer] Other Start: 01-11-2023 Office outpatient vi sit 25 minutes Khanh Ball [facility] Start: 01-11-2023 Telephone encounter Khanh Woodall [facility] Start: 11-23-2022 End: 11-23-2022 ambulatory Khanh Woodall Other [employer] Other Start: 11-23-2022 Telephone encounter Khanh Woodall [facility] Start: 11-05-2022 End: 11-05-2022 ambulatory Khanh Woodall Other [employer] Other Start: 11-05-2022 Telephone encounter Khanh Woodall [facility] Start: 10-15-2022 End: 10-15-2022 ambulatory Khanh Woodall Other [employer] Other Start: 10-15-2022 Telephone encounter Khanh Woodall [facility] Start: 10-05-2022 End: 10-05-2022 ambulatory Khanh Woodall Other [employer] Other Start: 10-05-2022 Office outpatient vi sit 25 minutes Khanh Ball [facility] Start: 08-25-2022 End: 08-25-2022 ambulatory Khanh Woodall Other [employer] Other Start: 08-25-2022 Telephone encounter Khanh Woodall [facility] Start: 08-18-2022 End: 08-19-[address] KHANH WOODALL Facility: Start: 07-27-2022 End: 07-28-2022 ambulatory [facility]it [facility] Start: 07-13-2022 ambulatory Parmjit REGALADO Facility : [facility] Start: 07-09-2022 End: 07-09-2022 ambulatory Khanh Woodall Other [employer] Other Start: 07-09-2022 Office outpatient vi sit 25 minutes Khanh Woodall [facility] Start: 07-09-2022 Telephone encounter Khanh Woodall [facility] Start: 07-08-2022 End: 07-09-[address] KHANH WOODALL Facility:[facility] Start: 07-02-2022 End: 07-02-2022 ambulatory Khanh Woodall Other [employer] Other Start: 07-02-2022 Office outpatient vi sit 15 minutes Khanh Woodall [facility] Start: 06-15-2022 Telephone encounter Khanh Woodall [facility] Start: 06-15-2022 End: 06-29-[address] KHANH WOODALL [facility] [employer] Other Start: 06-10-2022 End: 06-10-2022 ambulatory Khanh Woodall Other [employer] Other Start: 06-10-2022 Telephone encounter Khanh Woodall [facility] Start: 06-07-2022 End: 06-07-2022 ambulatory Khanh Woodall Other [employer] Other Start: 06-07-2022 Office outpatient vi sit 15 minutes Khanh Woodall [facility] Start: 06-07-2022 Telephone encounter Khanh Woodall [facility] Start: 05-17-2022 End: 05-17-2022 ambulatory Khanh Woodall Other [employer] Other Start: 05-17-2022 Telephone encounter Khanh Woodall [facility] Start: 04-16-2022 End: 04-16-2022 ambulatory Khanh Woodall Other [employer] Other Start: 04-16-2022 Telephone encounter Khanh Woodall [facility] Start: 03-28-2022 Encounter for genera l adult medical examination without abnormal findings DR KHANH WOODALL [facility] Start: 03-25-2022 Telephone encounter Khanh Woodall [facility] Start: 03-25-2022 End: 03-26-[address] KHANH WOODALL [facility] [employer] Other Start: 03-25-2022 End: 03-26-2022 Encounter for general adult medical examination without abnormal findings DR KHANH WOODALL Facility:[facility] Start: 03-24-2022 End: 03-24-2022 ambulatory Khanh Woodall Other [employer] Other Start: 03-24-2022 Encounter for genera l adult medical examination without abnormal findings Khanh Woodall [facility] Start: 03-24-2022 Patient encounter procedure Khanh Woodall [facility] Start: 03-24-2022 Periodic preventive med est patient 40-64yrs Khanh Woodall [facility] Start: 09-07-2021 End: 09-08-[address] KHANH WOODALL Facility:[facility] Start: 11-28-2019 Adult health examination Khahn Woodall Other [employer] Other Medical Equipment Procedure Code Equipment Code Equipment Original Text Equi pment Identifier Dates Pen [place] 32G X 5 MM Immunizations Immunization Date Immunization Notes Care Provider Fa ana rosa 12-23-2020 influenza virus vaccine, split virus (incl. purified surface antigen) Khanh Woodall Other [employer] Other 11-28-2019 influenza virus vaccine, split virus (incl. purified surface antigen) Khanh Woodall Other [employer] Other 12-25-2013 tetanus and diphther ia toxoids, adsorbed, preservative free, for adult use (5 Lf of tetanus toxoid and 2 Lf of diphtheria toxoid) Khanh Woodall Other [employer] Other 01-18-2013 tetanus and diphther ia toxoids, adsorbed, preservative free, for adult use (5 Lf of tetanus toxoid and 2 Lf of diphtheria toxoid) Khanh Woodall Other [employer] Other Medications Current Medications Medication Drug Class(es) [...] Metformin & Diet Manage Prod Active Pen [place] (15 sources) Pen [place] Acti ve Pravastatin (20 sources) HMG-CoA Reductase [...] Not-Taking Payers Date Payer Category Payer Unknown [id number] 2.16.84 [id number] 1965 Unknown [id number] 2.16.84 [id number] 1965 Unknown [id number] 2.16.84 [id number] 1965 Unknown [id number] 2.16.84 [id number] 1965 Unknown [id number] 2.16.84 [id number] 1965 Unknown [id number] 2.16.8 [id number] 1965 Unknown [id number] 2.16.8 [id number] 1965 Unknown [id number] 2.16.8 [id number] [facility] [id number] Problems Active Problems Problem Classification Problem Date [...] sources) Long-term current 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; Translations: [custodial (current) 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] Episodic Other aftercare (5 sources) custodial (current) 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; Translations: [SKILLED NURSING CURRENT USE OF INSULIN] Onset: 09-09-2021 Episodic [...] Comment on above: Performed By: #### P [facility] #### [facility] [address] [place] [address] Dr. Russ Hsu Start: 11-01-2018 Screening for malign ant neoplasm of colon Khanh Woodall Other Start: 02-21-2015 General examination of patient Khanh Woodall Other Results Test Name Value Interpretation Reference Range Facility Outside Colonoscopyon 2022 Outside Colonoscopy [id number]#1 .00CD:127 Normal [facility] Reminderson 08-19-2022 Reminders - From: Jess Perez LPN To: N - Clinical; Sent: 08/19/2022 12:08:18 EDT Show up: 07/18/2032 07:00:00 EDT Subject: colonoscopy recall Due Date/Time: 08/18/2032 07:00:00 EDT Reminder/Recall Patient due for screening colonoscopy 08/18/2032. [facility] Consent for Procedure/Surger yon 07-29-2022 Consent for Procedure/Surgery [id number]#1 .00CD:127 [facility] Facesheeton 07-29-2022 Facesheet [id number] .00CD:127 [facility] Pre-Certification Formon Pre-Certification Form [id number] 1.00CD:127 [facility] Ambulatory Visit Summaryon 0 07-27-2022 Ambulatory Visit [...] reflux disease) Hyperlipidemia Iron deficiency anemia Normal [facility] Physician Referralon 023 Physician Referral [id number]#1. 00CD:127 Normal [facility] CBC AUTO DIFFon 07-08-2022 BASO # 0.1 103/ul Normal 0.0-0.1 [facility] Comment on above: Performed By: #### C BC #### [facility] [address] [place] [address] Dr. Russ Hsu Basophils/100 WBC (Bld) 0.9 % Normal 0.2-2.0 [facility] Comment on above: Performed By: #### C BC #### [facility] [address] [place] [address] Dr. Russ Hsu EO # 0.4 103/ul Normal 0.0-0.7 [facility] Comment on above: Performed By: #### C BC #### [facility] [address] [place] [address] Dr. Russ Hsu Eosinophils/100 WBC (Bld) 4.1 % Normal 0.9-7.0 [facility] Comment on above: Performed By: #### C BC #### [facility] [address] [place] [address] Dr. Russ Hsu Erythrocyte distribution width (RBC) [Ratio] 13.6 % Normal 11.0-15.0 [facility] Comment on above: Performed By: #### C BC #### [facility] [address] [place] [address] Dr. Russ Hsu Hematocrit (Bld) [Volume fraction] 40.0 % Critically low 42.0-54.0 [facility] Comment on above: Performed By: #### C BC #### [facility] [address] [place] [address] Dr. Russ Hsu Hemoglobin (Bld) [Mass/Vol] 13.2 g/dL Critically low 14.0-18.0 [facility] Comment on above: Performed By: #### C BC #### [facility] [address] [place] [address] Dr. Russ Hsu IG # 0.08 10e3/ul Critically high 0.00-0.03 [facility] Comment on above: Performed By: #### C BC #### [facility] [address] [address] [address] Russ Hsu IG % 0.8 % Critically high 0.0-0.5 [facility] Comment on above: Performed By: #### C BC #### [facility] [address] [place] [address] Dr. Russ Hsu LYMPH # 2.0 103/ul Normal 1.2-3.8 [facility] Comment on above: Performed By: #### C BC #### [facility] [address] [place] [address] Dr. Russ Hsu Lymphocytes/100 WBC (Bld) 20.7 % Normal 20.5-60.0 [facility] Comment on above: Performed By: #### C BC #### [facility] [address] [place] [address] Dr. Russ Hsu MANUAL DIFF REQ NO Normal [facility] Comment on above: Performed By: #### C BC #### [facility] [address] [place] [address] Dr. Russ Hsu MCH (RBC) [Entitic mass] 28.6 pg Normal 25.9-34.0 [facility] Comment on above: Performed By: #### C BC #### [facility] [address] [place] [address] Dr. Russ Hsu MCHC (RBC) [Mass/Vol] 33.0 g/dL Normal 29.9-35.2 [facility] Comment on above: Performed By: #### C BC #### [facility] [address] [place] [address] Dr. Russ Hsu MCV (RBC) [Entitic vol] 86.8 fL Normal 80.0-94.0 [facility] Comment on above: Performed By: #### C BC #### [facility] [address] [place] [address] Dr. Russ Hsu MONO # 0.9 103/ul Critically high 0.3-0.8 [facility] Comment on above: Performed By: #### C BC #### [facility] [address] [place] [address] Dr. Russ Hsu Monocytes/100 WBC (Bld) 9.2 % Normal 1.7-12.0 [facility] Comment on above: Performed By: #### C BC #### [facility] [address] [place] [address] Dr. Russ Hsu NEUT # 6.1 103/ul Normal 1.4-6.5 [facility] Comment on above: Performed By: #### C BC #### [facility] [address] [place] [address] Dr. Russ Hsu Neutrophils/100 WBC (Bld) 64.3 % Normal 43.0-75.0 [facility] Comment on above: Performed By: #### C BC #### [facility] [address] [place] [address] Dr. Russ Hsu Platelet mean volume (Bld) [Entitic vol] 9.2 fL Critically low 9.5-13.5 [facility] Comment on above: Performed By: #### C BC #### [facility] [address] [place] [address] Dr. Russ Hsu PLT 366 103/ul Normal 150-450 [facility] Comment on above: Performed By: #### C BC #### [facility] [address] [place], [place] [id number] Dr. Russ Hsu RBC 4.61 106/ul Critically low 4.70-6.10 [facility] Comment on above: Performed By: #### C BC #### [facility] [address] [place] [address] Dr. Russ Hsu WBC 9.5 103/ul Normal 4.0-11.0 [facility] Comment on above: Performed By: #### C BC #### [facility] [address] [address] [address] Russ Hsu FERRITINon 07-08-2022 Ferritin [Mass/Vol] 53.0 ng/mL Normal 26.0-388.0 [facility] Comment on above: Performed By: #### F ERR, B12FOL, FETIBC #### [facility] [address] [address] [address] Russ Hsu GLYCOHEMOGLOBIN A1Con 2022 ADA RECOMMENDATION SEE BELOW Normal [facility] Comment on above: Result Comment: ADA RECOMMENDED LIMIT 4.0 - 6.0 ADA THERAPEUTIC TARGET < 7.0 ACTION SUGGESTED > 7.0 Performed By: #### A 1C #### [facility] [address] [address] [address] Russ Hsu Glucose [Mass/Vol] 203 mg/dL Normal [facility] Comment on above: Performed By: #### A 1C #### [facility] [address] [address] [address] Russ Hsu HbA1c (Bld) [Mass fraction] 8.7 % Critically high 4.5-6.2 [facility] Comment on above: Performed By: #### A 1C #### [facility] [address] [address] [address] Russ Hsu IRON AND TIBCon 07-08-2022 % SATURATION 16.9 % Normal [facility] Comment on above: Performed By: #### F ERR, B12FOL, FETIBC ####[facility] [address] [address]Dr. Russ Hsu Iron [Mass/Vol] 57.0 ug/dL Critically low 65.0-175.0 [facility] Comment on above: Performed By: #### F ERR, B12FOL, FETIBC ####[facility] [address] [id number]. Russ Hsu TIBC DIRECT 337.0 ug/dL Normal 250.0-450.0 [facility] Comment on above: Performed By: #### F ERR, B12FOL, FETIBC ####[facility] [address] [address]Dr. Russ Hsu VIT B12 AND FOLATEon 023 Cobalamin (Vitamin B12) [Mass/Vol] 353.0 pg/mL Normal 193.0-986.0 [facility] Comment on above: Performed By: #### F ERR, B12FOL, FETIBC ####[facility] [address] [address]Dr. Russ Hsu FOLATE 15.80 ng/mL Normal 8.60-58.90 [facility] Comment on above: Performed By: #### F ERR, B12FOL, FETIBC ####[facility] [address] [address]Dr. Russ Hsu CBC AUTO DIFFon 03-25-2022 BASO # 0.1 103/ul Normal 0.0-0.1 [facility] Comment on above: Performed By: #### C BC #### [facility] [address] [place] [address] Dr. Russ Hsu Basophils/100 WBC (Bld) 0.8 % Normal 0.2-2.0 [facility] Comment on above: Performed By: #### C BC #### [facility] [address] [place] [address] Dr. Russ Hsu EO # 0.5 103/ul Normal 0.0-0.7 [facility] Comment on above: Performed By: #### C BC #### [facility] [address] [place] [address] Dr. Russ Hsu Eosinophils/100 WBC (Bld) 5.9 % Normal 0.9-7.0 [facility] Comment on above: Performed By: #### C BC #### [facility] [address] [place] [address] Dr. Russ Hsu Erythrocyte distribution width (RBC) [Ratio] 13.2 % Normal 11.0-15.0 [facility] Comment on above: Performed By: #### C BC #### [facility] [address] [place] [address] Dr. Russ Hsu Hematocrit (Bld) [Volume fraction] 41.1 % Critically low 42.0-54.0 [facility] Comment on above: Performed By: #### C BC #### [facility] [address] [place] [address] Dr. Russ Hsu Hemoglobin (Bld) [Mass/Vol] 13.8 g/dL Critically low 14.0-18.0 [facility] Comment on above: Performed By: #### C BC #### [facility] [address] [place] [address] Dr. Russ Hsu IG # 0.08 10e3/ul Critically high 0.00-0.03 [facility] Comment on above: Performed By: #### C BC #### [facility] [address] [place] [address] Dr. Russ Hsu IG % 0.9 % Critically high 0.0-0.5 [facility] Comment on above: Performed By: #### C BC #### [facility] [address] [place] [address] Dr. Russ Hsu LYMPH # 2.3 103/ul Normal 1.2-3.8 [facility] Comment on above: Performed By: #### C BC #### [facility] [address] [place] [address] Dr. Russ Hsu Lymphocytes/100 WBC (Bld) 24.7 % Normal 20.5-60.0 [facility] Comment on above: Performed By: #### C BC #### [facility] [address] [place] [address] Dr. Russ Hsu MANUAL DIFF REQ NO Normal [facility] Comment on above: Performed By: #### C BC #### [facility] [address] [place] [address] Dr. Russ Hsu MCH (RBC) [Entitic mass] 28.5 pg Normal 25.9-34.0 [facility] Comment on above: Performed By: #### C BC #### [facility] [address] [place] [address] Dr. Russ Hsu MCHC (RBC) [Mass/Vol] 33.6 g/dL Normal 29.9-35.2 [facility] Comment on above: Performed By: #### C BC #### [facility] [address] [place] [address] Dr. Russ Hsu MCV (RBC) [Entitic vol] 84.7 fL Normal 80.0-94.0 [facility] Comment on above: Performed By: #### C BC #### [facility] [address] [place] [address] Dr. Russ Hsu MONO # 0.9 103/ul Critically high 0.3-0.8 [facility] Comment on above: Performed By: #### C BC #### [facility] [address] [place] [address] Dr. Russ Hsu Monocytes/100 WBC (Bld) 9.3 % Normal 1.7-12.0 [facility] Comment on above: Performed By: #### C BC #### [facility] [address] [place] [address] Dr. Russ Hsu NEUT # 5.4 103/ul Normal 1.4-6.5 [facility] Comment on above: Performed By: #### C BC #### [facility] [address] [place] [address] Dr. Russ Hsu Neutrophils/100 WBC (Bld) 58.4 % Normal 43.0-75.0 [facility] Comment on above: Performed By: #### C BC #### [facility] [address] [place] [address] Dr. Russ Hsu Platelet mean volume (Bld) [Entitic vol] 9.2 fL Critically low 9.5-13.5 [facility] Comment on above: Performed By: #### C BC #### [facility] [address] [place] [address] Dr. Russ Hsu PLT 327 103/ul Normal 150-450 [facility] Comment on above: Performed By: #### C BC #### [facility] [address] [place] [address] Dr. Russ Hsu RBC 4.85 106/ul Normal 4.70-6.10 [facility] Comment on above: Performed By: #### C BC #### [facility] [address] [address] [address] Russ Hsu WBC 9.2 103/ul Normal 4.0-11.0 [facility] Comment on above: Performed By: #### C BC #### [facility] [address] [address] [address] Russ Hsu GLYCOHEMOGLOBIN A1Con 2022 ADA RECOMMENDATION SEE BELOW Normal [facility] Comment on above: Result Comment: ADA RECOMMENDED LIMIT 4.0 - 6.0 ADA THERAPEUTIC TARGET < 7.0 ACTION SUGGESTED > 7.0 Performed By: #### A 1C ####[facility] [address] [id number]. Russ Hsu Glucose [Mass/Vol] 232 mg/dL Normal [facility] Comment on above: Performed By: #### A 1C ####[facility] [address] [id number]. Russ Hsu HbA1c (Bld) [Mass fraction] 9.7 % Critically high 4.5-6.2 [facility] Comment on above: Performed By: #### A 1C ####[facility] [address] [id number]. Russ Hsu LIPID PROFILEon 03-25-2022 CHOL-HDL RATIO NORM SEE BELOW Normal [facility] Comment on above: Result Comment: 3.3 - 4.4 LOW RISK 4.4 - 7.1 AVERAGE RISK 7.1 - 11.0 MODERATE RISK >11.0 HIGH RISK Performed By: #### C MP, LIPID #### [facility] [address] [address] [address] Russ Hsu Cholesterol [Mass/Vol] 145 mg/dL Normal <=200 [facility] Comment on above: Performed By: #### C MP, LIPID #### [facility] [address] [address] [address] Russ Hsu Cholesterol in HDL [Mass/Vol] 47 mg/dL Normal 40-60 [facility] Comment on above: Performed By: #### C MP, LIPID #### [facility] [address] [address] [address] Russ Hsu Cholesterol in LDL [Mass/Vol] 78.2 mg/dL Normal [facility] Comment on above: Performed By: #### C MP, LIPID #### [facility] [address] [address] [address] Russ Hsu Cholesterol.total/Cho lesterol in HDL [Mass ratio] 3.1 {ratio} Normal [facility] Comment on above: Performed By: #### C MP, LIPID #### [facility] [address] [address] [address] Russ Hsu HDL NORMAL > or = 60 mg/dl - LO W CARDIOVASCULAR RISK <40 mg/dl - HIGH CARDIOVASCULAR RISK Normal [facility] Comment on above: Performed By: #### C MP, LIPID #### [facility] [address] [place] [address] Dr. Russ Hsu LDL CALC NORMAL SEE BELOW Normal [facility] Comment on above: Result Comment: <100 mg/dl OPTIMAL 100 - 129 mg/dl NEAR OR ABOVE OPTIMAL 130 - 159 mg/dl BORDERLINE HIGH 160 - 189 mg/dl HIGH >190 mg/dl VERY HIGH Performed By: #### C MP, LIPID #### [facility] [address] [place] [address] Dr. Russ Hsu Triglyceride [Mass/Vol] 99 mg/dL Normal <=150 [facility] Comment on above: Performed By: #### C MP, LIPID #### [facility] [address] [place] [address] Dr. Russ Hsu VLDL CALC 19.8 mg/dL Normal [facility] Comment on above: Performed By: #### C MP, LIPID #### [facility] [address] [place] [address] Dr. Russ Hsu MICROALBUMIN, RAND URon 01-0 mALB 1.5 mg/L Normal <=30.0 [facility] Comment on above: Performed By: #### M ALBR #### [facility] [address] [place] [address] Dr. Russ Hsu PROF 14(COMP METB)on 023 Albumin [Mass/Vol] 3.5 g/dL Normal 3.4-5.0 [facility] Comment on above: Performed By: #### C MP, LIPID #### [facility] [address] [place] [address] Dr. Russ Hsu Albumin/Globulin [Mass ratio] 0.9 {ratio} Normal [facility] Comment on above: Performed By: #### C MP, LIPID #### [facility] [address] [place] [address] Dr. Russ Hsu ALP [Catalytic activity/Vol] 113 U/L Normal 46-116 [facility] Comment on above: Performed By: #### C MP, LIPID #### [facility] [address] [place] [address] Dr. Russ Hsu ALT [Catalytic activity/Vol] 23 U/L Normal 16-63 [facility] Comment on above: Performed By: #### C MP, LIPID #### [facility] [address] [place] [address] Dr. Russ Hsu Anion gap [Moles/Vol] 11.4 mmol/L Normal [facility] Comment on above: Performed By: #### C MP, LIPID #### [facility] [address] [place] [address] Dr. Russ Hsu AST [Catalytic activity/Vol] 17 U/L Normal 15-37 [facility] Comment on above: Performed By: #### C MP, LIPID #### [facility] [address] [place] [address] Dr. Russ Hsu Bilirubin [Mass/Vol] 0.3 mg/dL Normal 0.2-1.0 [facility] Comment on above: Performed By: #### C MP, LIPID #### [facility] [address] [place] [address] Dr. Russ Hsu Calcium [Mass/Vol] 9.3 mg/dL Normal 8.5-10.1 [facility] Comment on above: Performed By: #### C MP, LIPID #### [facility] [address] [address] [address] Russ Hsu Chloride [Moles/Vol] 100 mmol/L Normal 98-107 [facility] Comment on above: Performed By: #### C MP, LIPID #### [facility] [address] [address] [address] Russ Hsu CO2 [Moles/Vol] 27.5 mmol/L Normal 21.0-32.0 [facility] Comment on above: Performed By: #### C MP, LIPID #### [facility] [address] [address] [address] Russ Hsu Creatinine [Mass/Vol] 1.00 mg/dL Normal 0.70-1.30 [facility] Comment on above: Performed By: #### C MP, LIPID #### [facility] [address] [place] [address] Dr. Russ Hsu EGFR-AF NIGERIEN >60 Normal >=60 [facility] Comment on above: Performed By: #### C MP, LIPID #### [facility] [address] [place] [address] Dr. Russ Hsu EGFR-NON AF NIGERIEN >60 Normal >=60 [facility] Comment on above: Performed By: #### C MP, LIPID #### [facility] [address] [place] [address] Dr. Russ Hsu Globulin (S) [Mass/Vol] 3.8 g/dL Normal [facility] Comment on above: Performed By: #### C MP, LIPID #### [facility] [address] [place] [address] Dr. Russ Hsu Glucose [Mass/Vol] 181 mg/dL Critically high 74-106 [facility] Comment on above: Performed By: #### C MP, LIPID #### [facility] [address] [place] [address] Dr. Russ Hsu Potassium [Moles/Vol] 3.9 mmol/L Normal 3.5-5.1 [facility] Comment on above: Performed By: #### C MP, LIPID #### [facility] [address] [address] [address] Russ Hsu Protein [Mass/Vol] 7.3 g/dL Normal 6.4-8.2 [facility] Comment on above: Performed By: #### C MP, LIPID #### [facility] [address] [address] [address] Russ Hsu Sodium [Moles/Vol] 135 mmol/L Critically low 136-145 [facility] Comment on above: Performed By: #### C MP, LIPID #### [facility] [address] [address] [address] Russ Hsu Urea nitrogen [Mass/Vol] 13.0 mg/dL Normal 7.0-18.0 [facility] Comment on above: Performed By: #### C MP, LIPID #### [facility] [address] [place] [address] Dr. Russ Hsu Urea nitrogen/Creatinine [Mass ratio] 13.0 mg/mg Normal [facility] Comment on above: Performed By: #### C MP, LIPID #### [facility] [address] [address] [address] Russ Hsu GLYCOHEMOGLOBIN A1Con 2021 ADA RECOMMENDATION SEE BELOW Normal [facility] Comment on above: Result Comment: ADA RECOMMENDED LIMIT 4.0 - 6.0 ADA THERAPEUTIC TARGET < 7.0 ACTION SUGGESTED > 7.0 Performed By: #### A 1C #### [facility] [address] [place] [address] Dr. Russ Hsu Glucose [Mass/Vol] 214 mg/dL Normal [facility] Comment on above: Performed By: #### A 1C #### [facility] [address] [place] [address] Dr. Russ Hsu HbA1c (Bld) [Mass fraction] 9.1 % Critically high 4.5-6.2 [facility] Comment on above: Performed By: #### A 1C #### [facility] [address] [place] [address] Dr. Russ Hsu Social History Date Type Detail Facility Sex Assigned At [facility] Other Vital Signs Date Time Vital Sign Value Performing Clinician Facility 01-11-2023 15:30-0400 Body height 177.8 cm Khanh Ball Other [facility] 01-11-2023 15:30-0400 Body mass index (BMI) [Ratio] 35.95 kg/m2 Khanh Ball Other [facility] 01-11-2023 15:30-0400 Body weight 113.67 kg Khanh Ball Other [facility] 01-11-2023 15:30-0400 Diastolic blood pressure 91 mm[Hg] Khanh Ball Other [facility] 01-11-2023 15:30-0400 Respiratory rate 12 /min Khanh Ball Other [facility] 01-11-2023 15:30-0400 Systolic blood pressure 146 mm[Hg] Khanh Ball Other [facility] 10-05-2022 15:30-0400 Body height 177.8 cm Khanh Ball Other [facility] 10-05-2022 15:30-0400 Body mass index (BMI) [Ratio] 36.1 kg/m2 Khanh Ball Other [facility] 10-05-2022 15:30-0400 Body weight 114.13 kg Khanh Ball Other [facility] Other 10-05-2022 15:30-0400 Diastolic blood pressure 96 mm[Hg] Khanh Ball Other [facility] Other 10-05-2022 15:30-0400 Respiratory rate 16 /min Khanh Ball Other [facility] 10-05-2022 15:30-0400 Systolic blood pressure 172 mm[Hg] Khanh Ball Other [facility] 07-09-2022 09:30-0400 Body height 177.8 cm Khanh Ball Other [facility] Other 07-09-2022 09:30-0400 Body mass index (BMI) [Ratio] 35.09 kg/m2 Khanh Ball Other [facility] 07-09-2022 09:30-0400 Body weight 110.95 kg Khanh Ball Other [facility] Other 07-09-2022 09:30-0400 Diastolic blood pressure 90 mm[Hg] Khanh Ball Other [facility] Other 07-09-2022 09:30-0400 Respiratory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
[2023-08-31 07:50] LABS: Basophils Absolute Auto 0.1 10^3/uL (0.0-0.1); Basophils Percent Auto 0.9 % (0.2-2.0); Eosinophils Absolute Auto 0.6 10^3/uL (0.0-0.7); Eosinophils Percent Auto 6.5 % (0.9-7.0); Hematocrit 42.3 % (42.0-54.0); Hemoglobin 13.6 g/dL (14.0-18.0); Immature Granulocytes Abs Auto 0.06 10^3/uL (0.00-0.03); Immature Granulocytes Pct Auto 0.7 % (0.0-0.5); Lymphocytes Absolute Auto 2.2 10^3/uL (1.2-3.8); Lymphocytes Percent Auto 24.9 % (20.5-60.0); Mean Corpuscular HGB Conc 32.2 g/dL (29.9-35.2); Mean Corpuscular Hemoglobin 27.9 pg (25.9-34.0); Mean Corpuscular Volume 86.7 fL (80.0-94.0); Mean Platelet Volume 10.5 fL (9.5-13.5); Monocytes Absolute Auto 0.7 10^3/uL (0.3-0.8); Monocytes Percent Auto 8.3 % (1.7-12.0); Neutrophils Absolute Auto 5.1 10^3/uL (1.4-6.5); Neutrophils Percent Auto 58.7 % (43.0-75.0); Platelet Count 345 10^3/uL (150-450); Red Blood Count 4.88 10^6/uL (4.70-6.10); Red Cell Distribution Width 13.8 % (11.0-15.0); White Blood Count 8.7 10^3/uL (4.0-11.0)
[2023-08-31 08:08] LABS: Estimated Average Glucose 220 mg/dL; Glycohemoglobin A1C 9.3 % (4.5-6.2)
[2023-08-31 09:02] LABS: Alanine Aminotransferase 34 U/L (16-63); Albumin Globulin Ratio 0.9; Albumin Level 3.5 g/dL (3.4-5.0); Alkaline Phosphatase 111 U/L (46-116); Anion Gap 13.6; Aspartate Amino Transferase 19 U/L (15-37); BUN Creatinine Ratio 17.6; Bilirubin Total 0.3 mg/dL (0.2-1.0); Calcium 8.9 mg/dL (8.5-10.1); Carbon Dioxide 24.6 mmol/L (21.0-32.0); Chloride 104 mmol/L (98-107); Chol HDL Ratio 3.2; Cholesterol 162 mg/dL (<=200); Estimated GFR (African America >60 (>=60); Estimated GFR (Non-African Ame >60 (>=60); Globulin 3.8 g/dL; Glucose 211 mg/dL (74-106); HDL Cholesterol 51 mg/dL (40-60); LDL Cholesterol Calculated 90.4 mg/dL; Potassium 4.2 mmol/L (3.5-5.1); Sodium 138 mmol/L (136-145); Total Protein 7.3 g/dL (6.4-8.2); Triglycerides 103 mg/dL (<=150); VLDL CHOLESTEROL 20.6 mg/dL
[2023-08-31 09:08] LABS: Prostate Specific Antigen Scrn 0.22 ng/mL (<=4.00)
[2023-08-31 10:04] LABS: Microalbumin Urine Random <1.3 mg/dL (<=30.0)
== END 2023-08-31 07:05 | disposition home or self-care (01) ==
LOC: LAB 07:05
PROVIDERS: PCP Internal Medicine; Visit Provider Internal Medicine
DX: Z00.00 Encounter for general adult medical examination without abnormal findings (principal)
CPT/HCPCS: 36415; 80053; 80061; 82043; 83036; 85025; G0103

== ENCOUNTER 2024-05-04 11:38 | Outpatient (OUT) | payer BC, SELFPAY ==
--- OUTSIDE RECORDS SUMMARY | 2024-05-04 11:56 | XMS_ITS | CCD ---
Author Organization [facility] Care Team Providers Care Health Coordinator Name Role Phone Khanh Montemayor Unavailable SIM, DR CASSIDY Primary Care Unavailable BALL, DR CASSIDY Consulting Unavailable BALL, DR CASSIDY Attending Unavailable BALL, DR CASSIDY Admitting Unavailable BALL, DR CASSIDY Primary Care Unavailable BALL, DR CASSIDY Attending Unavailable BALL, DR CASSIDY Admitting Unavailable BALL, DR CASSIDY Primary Care Unavailable NILL ., DR PARNELL Admitting Unavailable NILL ., DR PARNELL Consulting Unavailable NILL ., DR PARNELL Attending Unavailable JESUS MANUEL II, ROXIE Consulting Unavailable KOMA, ABBEY Consulting Unavailable BALL, DR CASSIDY Primary Care Unavailable BALL, DR CASSIDY Consulting Unavailable BALL, DR CASSIDY Attending Unavailable BALL, DR CASSIDY Admitting Unavailable BALL, DR CASSIDY Primary Care Unavailable BALL, DR CASSIDY Consulting Unavailable BALL, DR CASSIDY Attending Unavailable BALL, DR CASSIDY Admitting Unavailable NILL, Maxx Boyle Attending Unavailable BALL, KHANH Referring Unavailable NILL, Maxx Boyle Attending Unavailable BALL, KHANH Referring Unavailable NILL, Maxx Boyle Attending Unavailable Allergies Allergy Classification Reported Allergen(s) Allergy Type Date of Onset Reaction(s) Facility (1 source) No Known Medication Allergies; Translations: [No Known Medication Allergies] Propensity to adverse reactions (disorder) [facility] Repository (3 sources) patient allergy list reviewed by nurse or physicia Propensity to adverse reactions Comment:[employer] Other Medications Current Medications Medication Drug Class(es) [...] 7 days Jun, Active Aspir-81 (20 sources) aspirin 81 mg delayed release oral tablet (3 sources) Platelet Aggregation Inhibitor, Nonsteroidal Anti-inflammatory Drug Start: 08-31-2023 take 1 tablet by mouth once daily Aspirin 81 mg tablet,delayed release (DR/EC) Active 81 MG PO Daily August 30, 2023 11:00pm BD Insulin Syringe Ultrafine (20 sources) BD Insulin Syringe Ultrafine Active betamethasone 0.5 mg/ml / clotrimazole 10 mg/ml topical cream (6 sources) Azole Antifungal, Corticosteroid Clotrimazole-Beta methasone 1-0.05 % 1 application Externally Twice a day as needed for 30 days Active clotrimazole 10 mg/ml topical cream (2 sources) Azole Antifungal Start: 03-30-2024 Clotrimazole 1 % cream Active 1 APPLIC TOPICAL Twice daily 45 March 30, 2024 3:28pm Start: 01-26-2024 End: 03-30-2024 Clotrimazole 1 % cream Disco ntinued 1 APPLIC TOPICAL Twice daily January 26, 2024 12:00am March 30, 2024 3:28pm Clotrimazole-Betamethasone (17 sources) Clotrimazole-Bet amethasone Active dapagliflozin 10 mg oral tab let (13 sources) Sodium-Glucose Cotransporter 2 Inhibitor Star t: 11-19 Dapagliflozin Propanediol (Farxiga) 10 mg tablet Active 0 .ROUTE .COMPLEX December 06, 2023 4:40pm TAKE 1 TABLET ONCE DAILY Start: 12-06-2023 End: 12-06-2023 take 1 tablet by mouth once daily Dapagliflozin Propanediol (Farxiga) 10 mg tablet Discontinued 10 MG PO Daily December 05, 2023 11:00pm December 06, 2023 4:40pm Start: 10-05-2022 take 1 tablet by sheila th every twenty-four hours Farxiga 10 MG 1 [...] a day for 30 days May, Active Flash Glucose Sensor (Freestyle Danilo 14 Day Sensor) kit (2 sources) Start: 02-19-2024 Flash Glucose Sensor (Freestyle Danilo 14 Day Sensor) kit Active 0 .ROUTE .COMPLEX 2 February 19, 2024 8:45am APPLY 1 SENSOR to back OF UPPER TO THE ARM REMOVE AND REPLACE EVERY 14 DAYS use WITH DEVICE Start: 01-25-2024 End: 02-19-2024 Flash Glucose Sensor (Freest yle Danilo 14 Day Sensor) kit Discontinued 0 .Route January 25, 2024 12:00am February 19, 2024 8:45am As directed FreeStyle Danilo 14 Day Senso r (20 sources) FreeStyle Danilo 14 Day Sensor Use to test home BS Transcutaneous 6x daily for 30 days Active insulin isophane / insulin, regular, human (20 sources) Insulin 3 ml insulin lispro 100 unt/ ml pen injector (18 sources) Insulin Analog HumaLOG [...] Subcutaneous before lunch for 30 days Active Insulin Lispro (Humalog Kwikpen Insulin) 100 unit/mL insulin pen (6 sources) Start: 05-20-2023 inject 10 [IU] by subcutaneous injection once daily Insulin Lispro (Humalog Kwikpen Insulin) 100 unit/mL insulin pen Active 10 UNIT SUBCUT Daily May 20, 2023 8:21am Start: 05-20-2023 inject 10 [IU] by prakash bcutaneous injection once daily Insulin Lispro (Humalog Kwikpen Insulin) 100 unit/mL insulin pen Active 10 UNIT SUBCUT Daily May 20, 2023 9:21am Start: 05-20-2023 End: 05-20-2023 Insulin Lispro (Humalog Kwik pen Insulin) 100 unit/mL insulin pen Discontinued 40 UNIT SUBCUT Daily May 20, 2023 12:00am May 20, 2023 8:22am 40 units Subcutaneous Start: 05-20-2023 End: 05-20-2023 Insulin Lispro (Humalog Kwik pen Insulin) 100 unit/mL insulin pen Discontinued 40 UNIT SUBCUT Daily May 20, 2023 1:00am May 20, 2023 9:22am 40 units Subcutaneous lisinopril 5 mg oral tablet (12 sources) Angiotensin Converting Enzyme Inhibitor take 1 tablet by mouth once daily Lisinopril 5 MG take 1 tablet by mouth once daily for 90 Active Lisinopril Activ e metFORMIN hydrochloride 1000 mg oral tablet (13 sources) Biguanide Start: 08-31-2023 End: 01-23-2024 take 1 tablet by mouth twice daily Metformin 1,000 mg tablet Active 1000 MG PO Twice daily 180 90 January 23, 2024 8:42pm Start: 10-05-2022 take 1 tablet by sheila th twice daily metFORMIN HCl 1000 MG 1 tablet with a meal Orally Twice daily Sep, Active Start: 10-05-2022 take 1 tablet by sheila th every twenty-four hours metFORMIN HCl 500 MG 1 tablet with a meal Orally Once a day for 30 days Sep, Active Metformin & Diet Manage Prod (14 sources) Metformin & Diet Manage Prod Active Pen Wolcott (15 sources) Pen Wolcott Acti ve pravastatin sodium 20 mg oral tablet (20 sources) HMG-CoA Reductase Inhibitor Start: End: take 1 mg by mouth once daily in the evening Pravastatin 20 mg tablet Active 0 .ROUTE .COMPLEX 90 January 26, 2024 12:28pm take 1 by mouth every evening Start: 06-07-2023 End: 06-07-2023 take 1 tablet by mouth once daily at bedtime Pravastatin 20 mg tablet Discontinued 20 MG PO Daily at bedtime June 06, 2023 11:00pm June 07, 2023 3:06pm take 1 tablet by sheila th once daily in the evening Pravastatin Sodium 20 MG take 1 tablet by mouth every evening Active Pravastatin Acti ve sildenafil (20 sources) Phosphodiesterase 5 Inhibitor Sildenafil Citrate Active telmisartan 80 mg oral tablet (2 sources) Angiotensin 2 Receptor Davy Start: 01-02-20 24 take 1 tablet by mouth once daily Telmisartan 80 mg tablet Active 80 MG PO Daily January 01, 2024 11:00pm terbinafine 250 mg oral tablet (9 sources) [...] Drug Class(es) Dates Sig (Normalized) Sig (Original) Blood-Glucose Sensor (Freestyle Danilo 3 Sensor) device (1 source) Start: 01-23-2024 End: 01-25-2024 Blood-Glucose Sensor (Freestyle Danilo 3 Sensor) device Discontinued 0 .ROUTE .MEDSUPPLY January 23, 2024 12:00am January 25, 2024 9:28am As directed Flash Glucose Scanning [place] (Freestyle Danilo 14 Day [place]) misc (1 source) Start: 01-25-2024 End: 01-25-2024 Flash Glucose Scanning [place] (Freestyle Danilo 14 Day [place]) misc Discontinued 0 .Route January 25, 2024 12:00am January 25, 2024 9:29am As directed 3 ml insulin detemir 100 unt/ml pen injector (13 sources) Insulin Analog Start: 07-09-2022 inject 10 [IU] by subcutaneous injection once at bedtime Levemir FlexPen 100 UNIT/ML 10 units Subcutaneous q HS Jun, Not-Taking 3 ml insulin glargine 100 unt/ml pen injector (16 sources) Insulin Analog Start: 03-30-2024 End: 04-01-2024 Insulin Glargine (Lantus Solostar U-100 Insulin) 100 unit/mL (3 mL) insulin pen Discontinued 0 .ROUTE .COMPLEX March 31, 2024 9:01am April 01, 2024 8:47am INJECT 60 UNITS SUBCUTANEOUSLY (UNDER THE SKIN) DAILY Start: 05-20-2023 End: 03-30-2024 Insulin Glargine (Lantus Ivonne ostar U-100 Insulin) 100 unit/mL (3 mL) insulin pen Discontinued 40 UNIT SUBCUT Daily 03 19May 20, 2023 5:27pm October 10, 2023 6:24am Start: 01-11-2023 Lantus SoloSta r 100 UNIT/ML 25 units Subcutaneous daily for 30 days Dec, Active losartan potassium 50 mg oral tablet (19 sources) Angiotensin 2 Receptor Davy Start: 08-31-2023 End: 01-02-2024 take 1 tablet by mouth once daily Losartan 50 mg tablet Discontinued 50 MG PO Daily August 31, 2023 2:20pm January 02, 2024 3:04pm FreeTextSig: take 1 tablet by mouth once daily; Note: Source Status: Continue; Provider: Sim Cassidy ( ) Start: 08-31-2023 End: 08-31-2023 take 1 tablet by mouth once daily Losartan 25 mg tablet Discontinued 1 TAB PO Daily August 30, 2023 11:00pm August 31, 2023 2:21pm FreeTextSig: take 1 tablet by mouth once daily; Note: Source Status: Continue; Provider: Sim Cassidy ( ) Start: 07-09-2022 take 1 tablet by sheila th every twenty-four hours Losartan Potassium 25 MG 1 tablet Orally Once a day Jun, Active Problems Active Problems Problem Classification Problem Date [...] Hyperlipidemia; Translations: [Hyperlipidemia, unspecified] Chronic Esophageal disorders (15 sources) Esophageal reflux finding; Translations: [Esophageal reflux] Onset: 03-16-2013 08-24-2023 Chronic Essential hypertension (20 sources) Essential hypertension; [...] sources) Long-term current 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; Translations: [senior 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) 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] Episodic Other aftercare (5 sources) senior 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) 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; 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 - 08/2023 Residual codes; unclassified (3 sources) Requires influenza [...] (less than one hour) loss of consciousness] Results Test Name Value Interpretation Reference Range Facility Basophils Auto (Bld) [#/Vol] on 08-31-2023 Basophils (Bld) [#/Vol] 0.1 10 3/uL 0.0-0.1 [facility] Basophils/100 WBC Auto (Bld) on 08-31-2023 Basophils/100 WBC (Bld) 0.9 % 0.2-2.0 [facility] Cholesterol in LDL Calc [Mas s/Vol]on 08-31-2023 Cholesterol in LDL [Mass/Vol] 90.4 mg/dL [facility] Comment on above: <100 mg/dl [id number] 0-129 mg/dl NEAR OR ABOVE [id number] mg/dl BORDERLINE [id number] mg/dl HIGH>190 mg/dl VERY HIGH Cholesterol in VLDL Calc [Ma ss/Vol]on 08-31-2023 Cholesterol in VLDL [Mass/Vol] 20.6 mg/dL [facility] Eosinophils/100 WBC Auto (Bl d)on 08-31-2023 Eosinophils/100 WBC (Bld) 6.5 % 0.9-7.0 [facility] Erythrocyte distribution wid th Auto (RBC) [Ratio]on 08-31-2023 Erythrocyte distribution width (RBC) [Ratio] 13.8 % 11.0-15.0 [facility] Estimated glomerular filtrat ion rate (GFR) non- Americanon 08-31-2023 GFR/1.73 sq M.predicted among non-blacks MDRD (S/P/Bld) [Vol rate/Area] mL/min/{1.73_m2} >=60 [facility] Globulin Calc (S) [Mass/Vol] on 08-31-2023 Globulin (S) [Mass/Vol] 3.8 g/dL [facility] Glucose mean value [Mass/vol ume] in Blood Estimated from glycated hemoglobinon 08-31-2023 Average glucose Estimated from glycated hemoglobin (Bld) [Mass/Vol] 220 mg/dL [facility] Hematocrit Auto (Bld) [Volum e fraction]on 08-31-2023 Hematocrit (Bld) [Volume fraction] 42.3 % 42.0-54.0 [facility] Hemoglobin [Mass/volume] in Bloodon 08-31-2023 Hemoglobin (Bld) [Mass/Vol] 13.6 g/dL 14.0-18.0 [facility] Laboratory - Chemistry and C hemistry - challengeon 08-31-2023 Albumin [Mass/Vol] 3.5 g/dL 3.4-5.0 [facility] ALP [Catalytic activity/Vol] 111 U/L 46-116 [facility] ALT [Catalytic activity/Vol] 34 U/L 16-63 [facility] AST [Catalytic activity/Vol] 19 U/L 15-37 [facility] Bilirubin [Mass/Vol] 0.3 mg/dL 0.2-1.0 [facility] Calcium [Mass/Vol] 8.9 mg/dL 8.5-10.1 [facility] Chloride [Moles/Vol] 104 mmol/L 98-107 [facility] Cholesterol [Mass/Vol] 162 mg/dL <=200 [facility] Cholesterol in HDL [Mass/Vol] 51 mg/dL 40-60 [facility] Comment on above: > or =60 mg/dl - LOW CARDIOVASCULAR RISK<40 mg/dl - HIGH CARDIOVASCULAR RISK CO2 [Moles/Vol] 24.6 mmol/L 21.0-32.0 [facility] Creatinine [Mass/Vol] 1.02 mg/dL 0.70-1.30 [facility] GFR/1.73 sq M.predicted MDRD (S/P/Bld) [Vol rate/Area] mL/min/{1.73_m2} >=60 [facility] Glucose [Mass/Vol] 211 mg/dL 74-106 [facility] Potassium [Moles/Vol] 4.2 mmol/L 3.5-5.1 [facility] Protein [Mass/Vol] 7.3 g/dL 6.4-8.2 [facility] Sodium [Moles/Vol] 138 mmol/L 136-145 [facility] Triglyceride [Mass/Vol] 103 mg/dL <=150 [facility] Urea nitrogen [Mass/Vol] 18.0 mg/dL 7.0-18.0 [facility] Urea nitrogen/Creatinine [Mass ratio] 17.6 mg/mg [facility] Laboratory - Hematology and Cell countson 08-31-2023 HbA1c (Bld) [Mass fraction] 9.3 % 4.5-6.2 [facility] Comment on above: ADA RECOMMENDED LIMI T 4.0 - 6.0ADA THERAPEUTIC TARGET < 7.0ACTION SUGGESTED> 7.0 Immature granulocytes/100 WBC (Bld) 0.7 % 0.0-0.5 [facility] Leukocytes [#/volume] correc mica for nucleated erythrocytes in Blood by Automated counon 08-31-2023 WBC corrected for nucl RBC Auto (Bld) [#/Vol] 8.7 10 3/uL 4.0-11.0 [facility] Lymphocytes Auto (Bld) [#/Vo l]on 08-31-2023 Lymphocytes (Bld) [#/Vol] 2.2 10 3/uL 1.2-3.8 [facility] Lymphocytes/100 WBC Auto (Bl d)on 08-31-2023 Lymphocytes/100 WBC (Bld) 24.9 % 20.5-60.0 [facility] MCH Auto (RBC) [Entitic mass ]on 08-31-2023 MCH (RBC) [Entitic mass] 27.9 pg 25.9-34.0 [facility] MCHC Auto (RBC) [Mass/Vol]on 08-31-2023 MCHC (RBC) [Mass/Vol] 32.2 g/dL 29.9-35.2 [facility] MCV Auto (RBC) [Entitic vol] on 08-31-2023 MCV (RBC) [Entitic vol] 86.7 fL 80.0-94.0 [facility] Microalbumin [Mass/volume] i n Urineon 08-31-2023 Albumin DL <= 20 mg/L (U) [Mass/Vol] mg/dL <=30.0 [facility] Monocytes Auto (Bld) [#/Vol] on 08-31-2023 Monocytes (Bld) [#/Vol] 0.7 10 3/uL 0.3-0.8 [facility] Monocytes/100 WBC Auto (Bld) on 08-31-2023 Monocytes/100 WBC (Bld) 8.3 % 1.7-12.0 [facility] Neutrophils Auto (Bld) [#/Vo l]on 08-31-2023 Neutrophils (Bld) [#/Vol] 5.1 10 3/uL 1.4-6.5 [facility] Neutrophils/100 WBC Auto (Bl d)on 08-31-2023 Neutrophils/100 WBC (Bld) 58.7 % 43.0-75.0 [facility] No Panel Informationon 08-30 Eosinophils # (Auto) 0.6 10 3/uL 0.0-0.7 [facility] Immature Granulocyte # (Auto) 0.06 10 3/uL 0.00-0.03 [facility] Prostate Specific Antigen Screen 0.22 ng/mL <=4.00 [facility] Platelet mean volume Auto (B ld) [Entitic vol]on 08-31-2023 Platelet mean volume (Bld) [Entitic vol] 10.5 fL 9.5-13.5 [facility] Platelets Auto (Bld) [#/Vol] on 08-31-2023 Platelets (Bld) [#/Vol] 345 10 3/uL 150-450 [facility] RBC Auto (Bld) [#/Vol]on RBC (Bld) [#/Vol] 4.88 10 6/uL 4.70-6.10 [facility] Serum or plasma albumin/glob ulin mass ratioon 08-31-2023 Albumin/Globulin [Mass ratio] 0.9 {ratio} [facility] Serum or plasma anion gap de terminationon 08-31-2023 Anion gap [Moles/Vol] 13.6 mmol/L [facility] Serum or plasma total choles terol/high density lipoprotein (HDL) cholesterol mass uma 08-31-2023 Cholesterol.total/Ch olesterol in HDL [Mass ratio] 3.2 {ratio} [facility] Comment on above: 3.3 - 4.4 LOW RISK4. 4 - 7.1 AVERAGE RISK7.1 - 11.0 MODERATE RISK>11.0 HIGH RISK Outside Colonoscopyon 2022 Outside Colonoscopy [id number]#1 .00CD:127 [facility] Reminderson 08-19-2022 Reminders - From: Jess Perez LPN To: [facility] - Clinical; Sent: 08/19/2022 12:08:18 EDT Show up: 07/18/2032 07:00:00 EDT Subject: colonoscopy recall Due Date/Time: 08/18/2032 07:00:00 EDT Reminder/Recall Patient due for screening colonoscopy 08/18/2032. [facility] Consent for Procedure/Surger yon 07-29-2022 Consent for Procedure/Surgery [id number]#1 .00CD:127 Normal [facility] Facesheeton 07-29-2022 Facesheet [id number]#1 .00CD:127 Normal [facility] Pre-Certification Formon Pre-Certification Form [id number]# 1.00CD:127 Normal [facility] Ambulatory Visit Summaryon 0 07-27-2022 Ambulatory Visit Summary SVEN MONROY :1965 Visit Date:07/27/2022 Ambulatory Visit Instructions Your Diagnosis Iron deficiency anemia Anemia due to gastrointestinal blood loss Your Care Team Attending Physician - JOSE R PIZARRO, Maxx Boyle Primary Care Physician - KHANH MONTEMAYOR DO Referring Physician - KHANH MONTEMAYOR DO This Is Your Medications List Contact [...] reflux disease) Hyperlipidemia Iron deficiency anemia Normal [facility] Physician Referralon 023 Physician Referral [id number]#1. 00CD:127 Normal [facility] CBC AUTO DIFFon 07-08-2022 BASO # 0.1 103/ul Normal 0.0-0.1 [facility] Comment on above: Performed By: #### C BC #### [facility] [address] [address] [address] Russ Hsu Basophils/100 WBC (Bld) 0.9 % Normal 0.2-2.0 [facility] Comment on above: Performed By: #### C BC #### [facility] [address] [address] [address] Russ Hsu EO # 0.4 103/ul Normal 0.0-0.7 [facility] Comment on above: Performed By: #### C BC #### [facility] [address] [address] [address] Russ Hsu Eosinophils/100 WBC (Bld) 4.1 % Normal 0.9-7.0 [facility] Comment on above: Performed By: #### C BC #### [facility] [address] [address] [address] Russ Hsu Erythrocyte distribution width (RBC) [Ratio] 13.6 % Normal 11.0-15.0 [facility] Comment on above: Performed By: #### C BC #### [facility] [address] [address] [address] Russ Hsu Hematocrit (Bld) [Volume fraction] 40.0 % Critically low 42.0-54.0 [facility] Comment on above: Performed By: #### C BC #### [facility] [address] [address] [address] Russ Hsu Hemoglobin (Bld) [Mass/Vol] 13.2 g/dL Critically low 14.0-18.0 [facility] Comment on above: Performed By: #### C BC #### [facility] [address] [address] [address] Russ Hsu IG # 0.08 10e3/ul Critically high 0.00-0.03 [facility] Comment on above: Performed By: #### C BC #### [facility] [address] [place] [address] Dr. Russ sHu IG % 0.8 % Critically high 0.0-0.5 [facility] Comment on above: Performed By: #### C BC #### [facility] [address] [place] [address] Dr. Russ Hsu LYMPH # 2.0 103/ul Normal 1.2-3.8 [facility] Comment on above: Performed By: #### C BC #### [facility] [address] [place] [address] Dr. Russ Hsu Lymphocytes/100 WBC (Bld) 20.7 % Normal 20.5-60.0 [facility] Comment on above: Performed By: #### C BC #### [facility] [address] [place] [address] Dr. Russ Hsu MANUAL DIFF REQ NO Normal [facility] Comment on above: Performed By: #### C BC #### [facility] [address] [place] [address] Dr. Russ Hsu MCH (RBC) [Entitic mass] 28.6 pg Normal 25.9-34.0 [facility] Comment on above: Performed By: #### C BC #### [facility] [address] [place] [address] Dr. Russ Hsu MCHC (RBC) [Mass/Vol] 33.0 g/dL Normal 29.9-35.2 [facility] Comment on above: Performed By: #### C BC #### [facility] [address] [place] [address] Dr. Russ Hsu MCV (RBC) [Entitic vol] 86.8 fL Normal 80.0-94.0 [facility] Comment on above: Performed By: #### C BC #### [facility] [address] [place] [address] Dr. Russ Hsu MONO # 0.9 103/ul Critically high 0.3-0.8 [facility] Comment on above: Performed By: #### C BC #### [facility] [address] [address] [address] Russ Hsu Monocytes/100 WBC (Bld) 9.2 % Normal 1.7-12.0 [facility] Comment on above: Performed By: #### C BC #### [facility] [address] [place] [address] Dr. Russ Hsu NEUT # 6.1 103/ul Normal 1.4-6.5 [facility] Comment on above: Performed By: #### C BC #### [facility] [address] [place] [address] Dr. Russ Hsu Neutrophils/100 WBC (Bld) 64.3 % Normal 43.0-75.0 [facility] Comment on above: Performed By: #### C BC #### [facility] [address] [place] [address] Dr. Russ Hsu Platelet mean volume (Bld) [Entitic vol] 9.2 fL Critically low 9.5-13.5 [facility] Comment on above: Performed By: #### C BC #### [facility] [address] [place] [address] Dr. Russ Hsu PLT 366 103/ul Normal 150-450 [facility] Comment on above: Performed By: #### C BC #### [facility] [address] [place] [address] Dr. Russ Hsu RBC 4.61 106/ul Critically low 4.70-6.10 [facility] Comment on above: Performed By: #### C BC #### [facility] [address] [place] [address] Dr. Russ Hsu WBC 9.5 103/ul Normal 4.0-11.0 [facility] Comment on above: Performed By: #### C BC #### [facility] [address] [place] [address] Dr. Russ Hsu FERRITINon 07-08-2022 Ferritin [Mass/Vol] 53.0 ng/mL Normal 26.0-388.0 [facility] Comment on above: Performed By: #### F ERR, B12FOL, FETIBC #### [facility] [address] [address] [address] Russ Hsu GLYCOHEMOGLOBIN A1Con 2022 ADA RECOMMENDATION SEE BELOW Normal [facility] Comment on above: Result Comment: ADA RECOMMENDED LIMIT 4.0 - 6.0 ADA THERAPEUTIC TARGET < 7.0 ACTION SUGGESTED > 7.0 Performed By: #### A 1C #### [facility] [address] [address] [address] Russ Hsu Glucose [Mass/Vol] 203 mg/dL Normal [facility] Comment on above: Performed By: #### A 1C #### [facility] [address] [address] [address] Russ Hsu HbA1c (Bld) [Mass fraction] 8.7 % Critically high 4.5-6.2 [facility] Comment on above: Performed By: #### A 1C #### [facility] [address] [address] [address] Russ Hsu IRON AND TIBCon 07-08-2022 % SATURATION 16.9 % Normal [facility] Comment on above: Performed By: #### F ERR, B12FOL, FETIBC ####[facility] [address] [address]DrJustina Hsu Iron [Mass/Vol] 57.0 ug/dL Critically low 65.0-175.0 [facility] Comment on above: Performed By: #### F ERR, B12FOL, FETIBC ####[facility] [address] [address]DrJustina Hsu TIBC DIRECT 337.0 ug/dL Normal 250.0-450.0 [facility] Comment on above: Performed By: #### F ERR, B12FOL, FETIBC ####[facility] [address] [address]Dr[address] Russ Hsu VIT B12 AND FOLATEon 023 Cobalamin (Vitamin B12) [Mass/Vol] 353.0 pg/mL Normal 193.0-986.0 [facility] Comment on above: Performed By: #### F ERR, B12FOL, FETIBC ####[facility] [address] [place], [place] [address]ShDr. Russ Hsu FOLATE 15.80 ng/mL Normal 8.60-58.90 [facility] Comment on above: Performed By: #### F ERR, B12FOL, FETIBC ####[facility] [address] [place], [place] [address]UsDr. Russ Hsu CBC AUTO DIFFon 03-25-2022 BASO # 0.1 103/ul Normal 0.0-0.1 [facility] Comment on above: Performed By: #### C BC #### [facility] [address] [address] [address] Russ Hsu Basophils/100 WBC (Bld) 0.8 % Normal 0.2-2.0 [facility] Comment on above: Performed By: #### C BC #### [facility] [address] [address] [address] Russ Hsu EO # 0.5 103/ul Normal 0.0-0.7 [facility] Comment on above: Performed By: #### C BC #### [facility] [address] [address] [address] Russ Hsu Eosinophils/100 WBC (Bld) 5.9 % Normal 0.9-7.0 [facility] Comment on above: Performed By: #### C BC #### [facility] [address] [address] [address] Russ Hsu Erythrocyte distribution width (RBC) [Ratio] 13.2 % Normal 11.0-15.0 [facility] Comment on above: Performed By: #### C BC #### [facility] [address] [address] [address] Russ Hsu Hematocrit (Bld) [Volume fraction] 41.1 % Critically low 42.0-54.0 [facility] Comment on above: Performed By: #### C BC #### [facility] [address] [address] [address] Russ Hsu Hemoglobin (Bld) [Mass/Vol] 13.8 g/dL Critically low 14.0-18.0 [facility] Comment on above: Performed By: #### C BC #### [facility] [address] [address] [address] Russ Hsu IG # 0.08 10e3/ul Critically high 0.00-0.03 [facility] Comment on above: Performed By: #### C BC #### [facility] [address] [address] [address] Russ Hsu IG % 0.9 % Critically high 0.0-0.5 [facility] Comment on above: Performed By: #### C BC #### [facility] [address] [address] [address] Russ Hsu LYMPH # 2.3 103/ul Normal 1.2-3.8 [facility] Comment on above: Performed By: #### C BC #### [facility] [address] [place] [address] Dr. Russ Hsu Lymphocytes/100 WBC (Bld) 24.7 % Normal 20.5-60.0 [facility] [place] [facility] Comment on above: Performed By: #### C BC #### [facility] [address] [place] [address] Dr. Russ Hsu MANUAL DIFF REQ NO Normal [facility] Comment on above: Performed By: #### C BC #### [facility] [address] [place] [address] Dr. Russ Hsu MCH (RBC) [Entitic mass] 28.5 pg Normal 25.9-34.0 [facility] Comment on above: Performed By: #### C BC #### [facility] [address] [place] [address] Dr. Russ Hsu MCHC (RBC) [Mass/Vol] 33.6 g/dL Normal 29.9-35.2 [facility] Comment on above: Performed By: #### C BC #### [facility] [address] [place] [address] Dr. Russ Hsu MCV (RBC) [Entitic vol] 84.7 fL Normal 80.0-94.0 [facility] Comment on above: Performed By: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 colonoscopy due Diagnosis 1 Iron deficiency anem ia, unspecified iron deficiency anemia type (D50.9) Referral Organization [facility] Ivon casillas Referring Provider First Name Khanh Referring Provider Last Name Sim Referring Provider Specialty Internal Me silvano Referred Provider Maxx Regalado Referred Provider Specialty Surgery Referral Priority Routine [employer] Other Summary Purpose Family History Relationship Condition Age at Onset Recorded Date/T ron father Malignant neoplasm Unknown Not Specified Heart disease Unknown Unknown Diabetes mellitus Unknown Hypertension Unknown Relationship Condition Age at Onset Recorded Date/T ron father Malignant neoplasm Unknown mother Heart disease Unknown Unknown Diabetes mellitus Unknown Hypertension Unknown Advance Directives Advance Directive Response Recorded Date/ Time Advance Directives No August 30 2:49pm Advance Directive Response Recorded Date/ Time Advance Directives No April 11:30am Chief Complaint and Reason for Visit Chief Complaint 4 month follow up Reason for Visit GERD (gastroesophage al reflux disease) Hypercholesterolemia Hypertension Type 2 diabetes mellitus with diabetic polyneuropathy Type 2 diabetes mellitus with hyperglycemia Chief Complaint 4 month follow up Reason for Visit GERD (gastroesophage al reflux disease) Hypercholesterolemia Hypertension Obesity Type 2 diabetes mellitus with diabetic polyneuropathy Type 2 diabetes mellitus with hyperglycemia Chief Complaint Admit Date Wellness May 04, 2024 10:22am Reason for Visit Admit Date GERD (gastroesophageal reflux disease) F ebruary 2024 10:22am Hypercholesterolemia May 04, 2024 10:22am Hypertension May 04, 2024 10:22am Obesity May 04, 2024 10:22am Screening PSA (prostate specific antigen ) May 04, 2024 10:22am Type 2 diabetes mellitus with diabetic p olyneuropathy May 04, 2024 10:22am Type 2 diabetes mellitus with hyperglyce koffi May 04, 2024 10:22am Wellness examination May 04, 2024 10:22am Additional Source Comments REASON FOR VISIT (unrecogniz [...] content) DATE CREATED AUTHOR 08/27/2022 [facility] DATE CREATED AUTHOR AUTHOR'S ORGANIZ ATION 09/15/2022 [facility] Care Teams (unrecognized sec tion and content) Team Status: Active Member Role Status Dates Khanh Montemayor DO Primary Care Provider Active Team Status: Inactive Member Role Status Dates Khanh Montemayor DO Primary Care Provide r, Attending Provider Active Start: January 02, 2024 End: January 02, 2024 Team Status: Active Member Role Status Dates Khanh Montemayor DO Primary Care Provide r, Attending Provider Active Start: August 31, 2023 Team Status: Inactive Member Role Status Dates Khanh Montemayor DO Primary Care Provide r, Attending Provider Active Start: August 31, 2023 End: August 31, 2023 Team Status: Inactive Member Role Status Dates Khanh Montemayor DO Primary Care Provide r, Attending Provider Active Start: May 04, 2024 End: May 04, 2024 Goals (unrecognized section and content) Goals may be documented in a n alternate section FOR RECORDS PERTAINING TO PATIENTS WHO ARE [...] BE BASED ON THE PRIMARY CLINICAL RECORDS. [facility]. provides no warranty or guarantee of the accuracy or completeness of information in this document.
[2024-05-04 12:03] LABS: Basophils Absolute Auto 0.1 10^3/uL (0.0-0.1); Basophils Percent Auto 1.3 % (0.2-2.0); Eosinophils Absolute Auto 0.6 10^3/uL (0.0-0.7); Eosinophils Percent Auto 6.9 % (0.9-7.0); Hemoglobin 14.5 g/dL (14.0-18.0); Immature Granulocytes Abs Auto 0.04 10^3/uL (0.00-0.03); Immature Granulocytes Pct Auto 0.5 % (0.0-0.5); Lymphocytes Percent Auto 24.1 % (20.5-60.0); Mean Corpuscular HGB Conc 32.2 g/dL (29.9-35.2); Mean Corpuscular Hemoglobin 28.6 pg (25.9-34.0); Mean Corpuscular Volume 88.8 fL (80.0-94.0); Mean Platelet Volume 9.9 fL (9.5-13.5); Monocytes Absolute Auto 0.8 10^3/uL (0.3-0.8); Monocytes Percent Auto 9.6 % (1.7-12.0); Neutrophils Absolute Auto 4.9 10^3/uL (1.4-6.5); Neutrophils Percent Auto 57.6 % (43.0-75.0); Platelet Count 339 10^3/uL (150-450); Red Blood Count 5.07 10^6/uL (4.70-6.10); Red Cell Distribution Width 13.2 % (11.0-15.0); White Blood Count 8.5 10^3/uL (4.0-11.0)
[2024-05-04 12:39] LABS: Estimated Average Glucose 220 mg/dL; Glycohemoglobin A1C 9.3 % (4.5-6.2)
[2024-05-04 12:51] LABS: Prostate Specific Antigen Scrn 0.16 ng/mL (<=4.00)
[2024-05-04 13:03] LABS: Alanine Aminotransferase 28 U/L (16-63); Albumin Level 3.8 g/dL (3.4-5.0); Alkaline Phosphatase 117 U/L (46-116); Anion Gap 12.8; Aspartate Amino Transferase 16 U/L (15-37); Bilirubin Total 0.4 mg/dL (0.2-1.0); Calcium 9.1 mg/dL (8.5-10.1); Carbon Dioxide 27.4 mmol/L (21.0-32.0); Chloride 105 mmol/L (98-107); Chol HDL Ratio 2.9; Cholesterol 138 mg/dL (<=200); Estimated GFR (African America >60 (>=60 mL/min/1.73m^2); Estimated GFR (Non-African Ame >60 (>=60 mL/min/1.73m^2); Globulin 3.7 g/dL; Glucose 170 mg/dL (74-106); HDL Cholesterol 48 mg/dL (40-60); LDL Cholesterol Calculated 69.8 mg/dL; Potassium 4.2 mmol/L (3.5-5.1); Sodium 141 mmol/L (136-145); Total Protein 7.5 g/dL (6.4-8.2); Triglycerides 101 mg/dL (<=150); VLDL CHOLESTEROL 20.2 mg/dL
[2024-05-04 13:37] LABS: Creatinine Urine Random 78.74 mg/dL (20.00-300.00); Microalbum Creatinine Ratio Ur 16.5 mg/g (0.0-29.9); Microalbumin Urine Random 1.3 mg/dL (<=30.0)
== END 2024-05-04 11:39 | disposition home or self-care (01) ==
LOC: LAB 11:39
PROVIDERS: PCP Internal Medicine; Visit Provider Internal Medicine
DX: Z00.00 Encounter for general adult medical examination without abnormal findings (principal)
CPT/HCPCS: 36415; 80053; 80061; 82043; 82570; 83036; 85025; G0103